=== PATIENT | male | born 1950 | race Caucasian/White ===

== ENCOUNTER 2019-06-26 06:53 | Outpatient (CLI) | payer OTHER, SELFPAY ==
[2019-06-26 07:21] LABS: Alanine Aminotransferase 46 U/L (4-50); Albumin Level 4.7 g/dL (3.5-5.1); Alkaline Phosphatase 86 U/L (38-126); Aspartate Amino Transferase 49 U/L (17-59); Bilirubin,Total 0.7 mg/dL (0.2-1.3); Blood Urea Nitrogen 16 mg/dL (9-20); Calcium 10.7 mg/dL (8.4-10.2); Carbon Dioxide 29 mmol/L (22-30); Chloride 104 mmol/L (98-107); Cholesterol 143 mg/dL (0-200); Estimated Glomerular Filt Rate > 60; Glucose 155 mg/dL (75-110); HDL Direct 33 mg/dL; Potassium 3.5 mmol/L (3.4-5.0); Sodium 140 mmol/L (137-145); Triglycerides 99 mg/dL (<150)
[2019-06-26 07:33] LABS: LDL Cholesterol Direct 84 mg/dL
[2019-06-26 08:12] LABS: Hemoglobin A1C 6.6 % (<5.7)
== END 2019-06-26 06:54 | disposition home or self-care (01) ==
PROVIDERS: PCP Emergency Medicine; Visit Provider Emergency Medicine
DX: E78.5 Hyperlipidemia, unspecified (principal); E11.9 Type 2 diabetes mellitus without complications
CPT/HCPCS: 36415; 80053; 80061; 83036

== ENCOUNTER 2019-07-25 11:40 | Observation (INO) | payer OTHER, SELFPAY ==
[2019-07-25] VITALS (13 sets, daily range): BP systolic 108–149; BP diastolic 70–85; PULSE 66–81; RESP 14–20; TEMP 36–37.1; O2SAT 95–100; BMI 30.2
--- NOTE | ~2019-07-25 | XR_ITS ---
EXAMINATION: XR chest 2V DATE: 07/25/2019 12:17 INDICATION: Chest pain TECHNIQUE: PA and lateral views of the chest are obtained. COMPARISON: 08/13/2007 FINDINGS: The lungs are free of acute opacities. There is no pleural effusion or pneumothorax. The ca rdiomediastinal silhouette is normal. There is moderate thoracic spondylosis. IMPRESSION: 1. No acute cardiopulmonary abnormality. Reviewed, dictated and finalized at location A.
--- NOTE | 2019-07-25 11:43 | ED.CHESTPAIN ---
HPI - Chest Pain General Chief Complaint: Chest Pain Stated Complaint: CP, Dizziness Time Seen by Provider: 07/25/19 11:43 Source: patient Mode of arrival: wheelchair Limitations: no limitations History of Present Illness HPI narrative: Patient is a 68-year-old male with a history of hypertension, hyperlipidemia, type 2 diabetes who presents for evaluation of chest pain and dizziness. Patient reports intermittent chest pain over the past 4 days that has mostly been in the center of his chest. Described as a sharp pain with radiation into the neck. Pt with left sided jaw pain, but denies shoulder pain. Patient has had associated dizziness that does not necessarily occur when he has a chest pain, but he notices the dizziness is worse when he goes from a sitting down to standing position, associated with lightheadedness. No syncope. No weakness. No palpitations. No fever, cough. Patient does notice some shortness of breath with exertion. No lower leg swelling or pain. No history of DVT or coagulopathy. No recent car or air travel, no recent immobility. Patient had a stress test many years ago which was normal. Patient does not smoke. Related Data Home Medications Medication Instructions Recorded Confirmed aspirin 81 mg tablet 81 mg PO DAILY 02/26/19 glipizide 5 mg tablet, extended 5 mg PO DAILY 02/26/19 release 24 hr lancets #50 each 02/26/19 omeprazole 20 mg tablet,delayed 20 mg PO DAILY 02/26/19 release fenofibrate nanocrystallized 48 mg PO DAILY 07/25/19 07/25/19 [Tricor] Allergies Allergy/AdvReac Type Severity Reaction Status Date / Time No Known Allergies Allergy Verified 07/25/19 11:49 Review of Systems Review of Systems: Narrative: CONSTITUTIONAL: Denies fever, chills, or sweats. EYES: Denies visual changes, redness, or discharge. ENT: Denies rhinorrhea, congestion, sore throat, or otalgia. CARDIOVASCULAR: Reports chest pain, denies palpitations or edema RESPIRATORY: Denies cough reports dyspnea with exertion GASTROINTESTINAL: Denies abdominal pain, nausea, vomiting, or diarrhea. GENITOURINARY: Denies dysuria or hematuria. SKIN: Denies rash or itching. MUSCULOSKELETAL: Denies back pain, joint pain, or myalgia. NEUROLOGIC: Denies headache, numbness, or weakness. [facility], [facility] Past Medical History Medical History (Updated 07/25/19 @ 12:57 by Idalmis Xavier MD) BPH (benign prostatic hyperplasia) Diabetes mellitus Hyperlipidemia Hypertension Screening PSA (prostate specific antigen) Social History Social History Smoking status: Never smoker Alcohol intake: current Exam Narrative: Exam Narrative: GENERAL: Awake, alert, conversant HEAD: Normocephalic, atraumatic. EYES: PERRLA and EOMI. ENT: Nares clear, no rhinorrhea or epistaxis. Mucous membranes moist. NECK: Supple. CHEST: No respiratory distress, breathing even and non labored, no reproducible chest wall pain HEART: Regular rate, sinus rhythm ABDOMEN:Non distended, non tender EXTREMITIES: Normal range of motion. No edema. SKIN: Warm, dry, no rash. NEURO:No focal deficits. Alert and oriented x3 Course Vital Signs Vital signs: Vital Signs Temperature 37.1 C 07/25/19 11:45 Pulse Rate 81 07/25/19 11:45 Respiratory Rate 14 07/25/19 11:45 Blood Pressure 149/85 H 07/25/19 11:45 Pulse Oximetry 99 07/25/19 11:45 Temperature 37.1 C 07/25/19 11:45 Pulse Rate 68 07/25/19 12:26 Respiratory Rate 20 07/25/19 12:26 Blood Pressure 123/74 07/25/19 12:26 Pulse Oximetry 98 07/25/19 12:26 MDM - Chest Pain MDM Narrative Medical decision making narrative: Patient presented for evaluation of chest pain as well as dizziness. At the time of assessment, ABCs are intact and vital signs are stable. Physical exam unremarkable. I feel that based on patient's history, symptoms, heart score of 6, there is concern for may be an anginal equivalent here especiall
--- NOTE | 2019-07-25 11:48 | ECG_ITS ---
Measurements Intervals [place] Rate: 79 P: 26 WV: 212 QRS: -25 QRSD: 110 T: 8 QT: 367 QTc: 421 Interpretive Statements SINUS RHYTHM WITH FIRST DEGREE AV BLOCK DELAYED PRECORDIAL R/S TRANSITION INFERIOR INFARCT, AGE INDETERMINATE ABNORMAL ECG Electronically Signed On 07-25-2019 13:17:52 CDT by Chandrakant Martinez D.O.
[2019-07-25] MEDS: ASPIRIN 81 MG CHEWABLE TABLET 324 MG PO (11:51)
[2019-07-25 12:08] LABS: Basophils Absolute Auto 0.1 K/mm3 (0.0-0.1); Basophils Percent Auto 0.9 % (0.2-1.2); Eosinophils Absolute Auto 0.2 K/mm3 (0-0.3); Eosinophils Percent Auto 2.4 % (0-4.4); Hematocrit 38.4 % (42.0-52.0); Hemoglobin 13.3 g/dL (14.0-18.0); Immature Granulocyte Absolute 0.03 K/mm3 (0.00-0.031); Immature Granulocyte Percent A 0.3 % (0-0.5); Lymphocytes Absolute Auto 1.64 K/mm3 (0.9-3.2); Lymphocytes Percent Auto 17.2 % (18.3-44.2); Mean Corpuscular HGB Conc 34.6 g/dl (32-36); Mean Corpuscular Hemoglobin 30.6 pg (26-34); Mean Corpuscular Volume 88.5 fl (80-100); Mean Platelet Volume 10.9 fl (7.4-10.4); Monocytes Percent Auto 10.7 % (2.6-8.5); Neutrophils Absolute Auto 6.5 K/mm3 (1.3-6.7); Neutrophils Percent Auto 68.5 % (45.5-73.1); Platelet Count Result 390 k/mm3 (150-375); Red Blood Count 4.34 M/mm3 (4.6-6.20); Red Cell Distribution Width 12.6 % (11.5-14.5); White Blood Count 9.5 K/mm3 (4.5-10.0)
[2019-07-25 12:17] LABS: Prothrombin Time 13.1 Seconds (11.1-14.7)
[2019-07-25 12:19] LABS: Blood Urea Nitrogen 18 mg/dL (9-20); Calcium 10.9 mg/dL (8.4-10.2); Carbon Dioxide 26 mmol/L (22-30); Chloride 102 mmol/L (98-107); Estimated CRCL calculation 71 ml/min; Estimated Glomerular Filt Rate > 60; Glucose 112 mg/dL (75-110); Potassium 3.6 mmol/L (3.4-5.0); Sodium 139 mmol/L (137-145)
[2019-07-25] MEDS: MORPHINE SULFATE 4 MG/ML INJ IV PUSH (12:25)
[2019-07-25 12:31] LABS: Troponin I < 0.012 ng/mL (0.000-0.034)
--- NOTE | 2019-07-25 14:47 | PC.NURSE ---
This patient, Ruslan King, was admitted to IMU Room 200-01. Patient/family oriented to hospital policies and general routines including ID bracelet, bed and alarms, visiting hours, pain management, procedures, bathroom and other care routines, personal items, smoking policy, room service/diet, and visiting hours. Valuables list has been completed. Information on how to activate the Rapid Response Team has been discussed. Patient/Family are encouraged to report perceived risks to care and to ask questions if they do not understand what they are told or what they should do.
[2019-07-25 15:50] LABS: Troponin I < 0.012 ng/mL (0.000-0.034)
--- NOTE | 2019-07-25 17:55 | PM.IMHP ---
H&P: HPI History of Present Illness Chief complaint: Dizziness, chest pain. Narrative: Ruslan King is a pleasant 68-year-old male with hypertension, dyslipidemia, type 2 diabetes mellitus, GERD, and benign prostatic hyperplasia who presented to the emergency department earlier today from home for evaluation of dizziness and chest pain. For the past week or so, he notes intermittent dizziness that he further qualifies as more vertiginous in nature. Typically he will have vertigo when waking up in the morning, bending over, and with certain position changes. Symptoms typically pass within approximately 10 to 15 minutes. If he is ambulating during that time, he tells me it feels as though he is ambulating while intoxicated. In the past 4 days, he also notes intermittent midsternal chest discomfort that he has a difficult time describing, but stays on occasion it is perhaps a bit tight. Initially, he thought his symptoms were related to GERD but he goes on to say that the symptoms are not really that similar. He has not noticed a pattern as to when this chest discomfort occurs, and specifically denies seeing a correlation between the discomfort and eating or with exercise. The discomfort seems to pass within minutes, without intervention. He does not necessarily have vertigo at the same time. No otalgia or aural fullness. He also denies sweats, nausea, vomiting, and shortness of breath. No lower extremity edema, calf pain, recent travel, or history of venous thromboembolism. As an aside, the patient wonders if some of his symptoms are due to anxiety as his 94-year-old mother, who is residing in a retirement in [place], has recently been diagnosed with pneumonia secondary to COVID. Review of Systems Review of Systems: Narrative: Twelve systems were reviewed with pertinent positives and negatives as per HPI. He typically wears contacts however his vision seems to be a bit more blurry while wearing the contacts, so now he is mainly wearing his glasses. He has an upcoming appoint with his eye doctor in the next couple of months. He denies that these visual changes were acute. Occasional night sweats, but nothing significant. He has lost about 5 pounds, but he has been trying to eat better. No focal weakness or paresthesias. He denies racing heart, fluttering, and palpitations. No cough or shortness of breath. He denies orthopnea, PND, and lower extremity edema. He has concerns for possible sleep apnea as he reportedly snores and does not always feel well rested. No nausea or vomiting. He denies diarrhea and constipation. He has not noticed any blood in his stools. He believes his diabetes is well controlled. Except as documented, all other systems were reviewed and are negative. [facility] Past Medical History Medical History (Updated 07/25/19 @ 21:18 by Zeina Miranda PA-C) Abnormal colonoscopy (~03/2017) History of benign colon and rectal polyps as well as uncomplicated internal hemorrhoids and diverticulosis on colonoscopy per Dr. Singh. Benign prostatic hyperplasia Essential hypertension Gastroesophageal reflux disease Hyperlipidemia Normal stress echocardiogram (~07/2007) Type 2 diabetes mellitus Hemoglobin A1c was 6.6% in May 2019. Surgical History Surgical History (Updated 07/25/19 @ 14:59 by Zeina Miranda PA-C) History of hydrocelectomy (~09/2011) Right hydrocelectomy per Dr. Bender. Family History Family History Sibling Diabetes mellitus Other Hypertension Social History Social History (Updated 07/25/19 @ 21:10 by Zeina Miranda PA-C) Social History: The patient lives in his own home in [place]. 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 He has no children. He is a lifelong nonsmoker and denies alcohol and drug abuse. His sibling, Romeo Gonsalez
[2019-07-25 18:29] LABS: Glucose Point of Care 112 (65-105)
[2019-07-25 19:11] LABS: Troponin I < 0.012 ng/mL (0.000-0.034)
[2019-07-25] MEDS: CLONIDINE HCL 0.2 MG TABLET BY MOUTH (23:23)
[2019-07-26] VITALS (10 sets, daily range): BP systolic 119–148; BP diastolic 67–90; PULSE 68–104; RESP 16–20; TEMP 36.2–36.7; O2SAT 98–100
--- NOTE | 2019-07-26 | EST_ITS ---
Patient Info Name: Ruslan King Age: 68 years : 1950 Gender: Male Ht: 67 in Wt: 194 lbs BSA: 2.07 m2 Exam Date: 07/26/2019 9:42 AM Exam Location: [facility] Stress Patient Status: Outpatient Admit Date: 07/25/2019 Staff Ordering Physician: Zeina Miranda PA-C Attending Provider: Juliann Kendall PA-C Exercise Technologist: Earl Meadows RDCS, RT Exercise Physician: Chandrakant Martinez DO Exam Type: CA stress test treadmill Study Info A regadenoson stress test was performed. Summary 1. 1. Negative Sage exercise stress test for ischemic ST changes by ECG criteria. 2. 2. Poor functional capacity, achieving 4 METs of workload. 3. 3. Baseline hypertension. 4. 4. Appropriate HR response to exercise. 5. 5. Appropriate HR recovery at 1 minute post exercise. 6. 6. No imaging with stress testing. 7. 7. Patient informed of the above results. Protocol: Sage Stress ECG Details Stage: REST Duration (min): 1 min : 17 sec Speed (mph): 0.0 Grade (%): 0 HR (bpm): 93 SBP (mmHg): 148 DBP (mmHg): 86 METS: --- Stage: REST Duration (min): 13 min : 13 sec Speed (mph): 0.0 Grade (%): 0 HR (bpm): 98 SBP (mmHg): 148 DBP (mmHg): 86 METS: --- Stage: STAGE 1 Duration (min): 1 min : 0 sec Speed (mph): 1.7 Grade (%): 10 HR (bpm): 125 SBP (mmHg): 148 DBP (mmHg): 86 METS: --- Stage: STAGE 1 Duration (min): 2 min : 0 sec Speed (mph): 1.7 Grade (%): 10 HR (bpm): 132 SBP (mmHg): 148 DBP (mmHg): 86 METS: --- Stage: STAGE 1 Duration (min): 2 min : 59 sec Speed (mph): 1.7 Grade (%): 10 HR (bpm): 136 SBP (mmHg): 174 DBP (mmHg): 100 METS: --- Stage: RECOVERY Duration (min): 1 min : 0 sec Speed (mph): 0.0 Grade (%): 0 HR (bpm): 128 SBP (mmHg): 174 DBP (mmHg): 100 METS: --- Stage: RECOVERY Duration (min): 2 min : 0 sec Speed (mph): 0.0 Grade (%): 0 HR (bpm): 111 SBP (mmHg): 174 DBP (mmHg): 100 METS: --- Stage: RECOVERY Duration (min): 2 min : 21 sec Speed (mph): 0.0 Grade (%): 0 HR (bpm): 108 SBP (mmHg): 174 DBP (mmHg): 100 METS: --- Rest HR: 98 bpm Peak HR: 140 bpm Rest Sys BP: 148 mmHg Peak Sys BP: 174 mmHg Max Pred HR: 150 bpm % Max Pred HR: 93 % Target HR: 128 bpm Max RPP: 24,360 bpm*mmHg Carl Score: -3 Termination Reason: Reached target heart rate or workload Cardiac Symptoms: Shortness of breath Max ST Seg Deviation: 1.20 mm Total Time: 2 min : 59 sec Rest Gregory BP: 86 mmHg Peak Gregory BP: 100 mmHg Angina Score: None Total METS: 4.7 Resting ECG Sinus rhythm. Stress ECG No ST changes. Arrhythmias None. Report Signatures
[2019-07-26 06:15] LABS: Hematocrit 36.6 % (42.0-52.0); Hemoglobin 12.5 g/dL (14.0-18.0); Mean Corpuscular HGB Conc 34.2 g/dl (32-36); Mean Corpuscular Hemoglobin 30.6 pg (26-34); Mean Corpuscular Volume 89.5 fl (80-100); Mean Platelet Volume 10.2 fl (7.4-10.4); Platelet Count Result 360 k/mm3 (150-375); Red Blood Count 4.09 M/mm3 (4.6-6.20); Red Cell Distribution Width 12.6 % (11.5-14.5); White Blood Count 7.1 K/mm3 (4.5-10.0)
[2019-07-26 06:31] LABS: Alanine Aminotransferase 34 U/L (4-50); Albumin Level 4.5 g/dL (3.5-5.1); Alkaline Phosphatase 77 U/L (38-126); Aspartate Amino Transferase 51 U/L (17-59); Bilirubin,Total 0.8 mg/dL (0.2-1.3); Blood Urea Nitrogen 14 mg/dL (9-20); Calcium 10.8 mg/dL (8.4-10.2); Carbon Dioxide 33 mmol/L (22-30); Chloride 102 mmol/L (98-107); Cholesterol 137 mg/dL (0-200); Estimated CRCL calculation 79 ml/min; Estimated Glomerular Filt Rate > 60; Glucose 136 mg/dL (75-110); HDL Direct 30 mg/dL; Potassium 3.2 mmol/L (3.4-5.0); Sodium 142 mmol/L (137-145); Triglycerides 65 mg/dL (<150)
[2019-07-26 06:41] LABS: LDL Cholesterol Direct 83 mg/dL
[2019-07-26] MEDS: CLONIDINE HCL 0.2 MG TABLET BY MOUTH (08:11)
[2019-07-26] MEDS: PANTOPRAZOLE SOD SESQUIHYDRATE 20 MG TAB PO (08:12)
[2019-07-26] MEDS: hydroCHLOROthiazide 25 MG TABLET PO (08:12)
[2019-07-26] MEDS: AMLODIPINE BESYLATE 5 MG TABLET 10 MG PO (08:12)
[2019-07-26] MEDS: METOPROLOL SUCCINATE EXT REL 50 MG TABCR PO (08:13)
[2019-07-26] MEDS: METOPROLOL SUCCINATE EXT REL 100 MG TABCR PO (08:13)
[2019-07-26] MEDS: LOSARTAN POTASSIUM 100 MG TABLET PO (08:13)
[2019-07-26] MEDS: ASPIRIN 81 MG ENTERIC TABLET PO (08:14)
[2019-07-26] MEDS: TAMSULOSIN HCL 0.4 MG CAPSULE PO (08:14)
[2019-07-26] MEDS: glipiZIDE XL 5 MG TABCR PO (08:14)
[2019-07-26] MEDS: FENOFIBRATE,MICRONIZED 48 MG TABLET PO (08:14)
[2019-07-26] MEDS: MECLIZINE HCL 12.5 MG TABLET PO (08:14)
[2019-07-26 09:25] LABS: Glucose Point of Care 133 (65-105)
[2019-07-26 12:32] LABS: Glucose Point of Care 138 (65-105)
[2019-07-26] MEDS: POTASSIUM CHLORIDE 20 MEQ TABLET 40 MEQ PO (14:55)
--- NOTE | 2019-07-26 15:42 | PM.DS ---
DS: Admitting Diagnosis Admitting Diagnosis Admitting Diagnosis: Chest pain, unspecified DS: Discharge Diagnosis Discharge Diagnosis (1) Chest pain: Code(s): R07.9 - Chest pain, unspecified Status: Acute Assessment and Plan: He reports his chest discomfort is mostly to his epigastric/substernal chest area without any radiation. Seems a bit atypical for cardiac pain, although he does have risk factors. He states this morning he got some of the discomfort but it was prior to him taking his PPI from the nurse. After that he did not seem to have any other symptoms. He is wondering if this is related to GERD. He has ruled out for acute coronary syndrome by serial troponins. Treadmill stress test was completed and showed negative Sage exercise stress test for ischemic ST changes on EKG, baseline hypertension, appropriate heart rate response to exercise and appropriate heart rate recovery 1 minutes post exercise. No imaging was completed with the stress test. Echocardiogram was completed which showed left ventricular systolic function was normal at 60 to 65%, LV diastolic dysfunction grade 1, mild to moderate aortic valve regurgitation, otherwise no acute abnormality. Telemetry showed normal sinus rhythm with a heart rate of 97 bpm, with only a few alarm showing sinus tachycardia in the 120s which was most likely when he was up walking around. No acute abnormality noted on telemetry or arrhythmia. Fasting lipids this morning showed normal total cholesterol normal triglycerides, slightly elevated LDL at 83 which should be less than 70 since he has a history of diabetes, and low HDL showing he may need to exercise some more his free time. I feel at this time he is stable to be discharged home after the extensive cardiac workup we have completed on him at this time. Patient understands and agrees with the plan all questions answered. (2) Suspected sleep apnea: Code(s): R29.818 - Other symptoms and signs involving the nervous system Status: Acute Assessment and Plan: Apnea link was completed last night which does show some suspicion for underlying GETACHEW. Apnea link showed AHI was 13.5, RI was 15.3, MARIA ELENA 9.4. He states his primary care provider was trying to get him set up with an outpatient sleep study, which I feel this is but needs to be done next. (3) Essential hypertension: Code(s): I10 - Essential (primary) hypertension Status: Acute Assessment and Plan: Blood pressures were reviewed and they are reasonably well controlled. Continue antihypertensives and monitor daily. (4) Type 2 diabetes mellitus: Code(s): E11.9 - Type 2 diabetes mellitus without complications Status: Acute Assessment and Plan: Recent hemoglobin A1c was 6.6%. Will continue metformin upon discharge. (5) Hyperlipidemia: Code(s): E78.5 - Hyperlipidemia, unspecified Status: Acute Assessment and Plan: Continue fenofibrate. I feel he may need a statin medication to reduce his LDL cholesterol less than 70. (6) Benign prostatic hyperplasia: Code(s): N40.0 - Benign prostatic hyperplasia without lower urinary tract symptoms Status: Acute Assessment and Plan: No acute issues. Continue tamsulosin. (7) Gastroesophageal reflux disease: Code(s): K21.9 - Gastro-esophageal reflux disease without esophagitis Status: Acute Assessment and Plan: Continue omeprazole. (8) Vertigo: Code(s): R42 - Dizziness and giddiness Status: Acute Assessment and Plan:
--- NOTE | 2019-07-26 21:15 | ECHO_ITS ---
Patient Info Name: Ruslan King Age: 68 years : 1950 Gender: Male Ht: 69 in Wt: 193 lbs BSA: 2.08 m2 HR: 78 bpm BP: 137 / 90 mmHg Heart Rhythm: Sinus Rhythm Technical Quality: Good Exam Date: 07/26/2019 11:52 AM Exam Location: [facility] Patient Status: Inpatient Admit Date: 07/25/2019 Staff Ordering Physician: Zeina Miranda PA-C Associate Professor Of Chemistry: Jerardo Frias RDCS Attending Provider: Juliann Kendall PA-C Referring Physician: Ruth LANG; Exam Type: CA echo doppler color flow Study Info Indications R07.9 - Chest pain, unspecified Complete two-dimensional, color flow and Doppler transthoracic echocardiogram is performed. Strain analysis performed. History/Risk Factors Chest pain; HTN, DM2. Summary 1. Left ventricular chamber dimension is normal. 2. Ventricular septum is sigmoid shaped. 3. Left ventricular systolic function is normal, estimated at 60-65%. 4. The left ventricular diastolic function is grade I diastolic dysfunction. 5. E/e' 8 is minimally elevated. 6. Global longitudinal strain is abnormal at -14.8%. 7. Left atrial chamber dimension is mildly enlarged. 8. Right atrial chamber dimension is mildly enlarged. 9. There is mild aortic valve sclerosis. 10. There is mild to moderate aortic valve regurgitation. 11. No pulmonary hypertension, estimated pulmonary arterial systolic pressure is 27 mmHg. Left Ventricle E/e' 8 is minimally elevated. Global longitudinal strain is abnormal at -14.8%. Ventricular septum is sigmoid shaped. Left ventricular chamber dimension is normal. Left ventricular systolic function is normal, estimated at 60-65%. The left ventricular diastolic function is grade I diastolic dysfunction. Right Ventricle Right ventricular chamber dimension is normal. Right ventricular systolic function is normal. Left Atria Left atrial chamber dimension is mildly enlarged. Right Atria Right atrial chamber dimension is mildly enlarged. Aortic Valve The aortic valve is trileaflet. There is mild aortic valve sclerosis. There is no aortic valve stenosis. There is mild to moderate aortic valve regurgitation. Pulmonic Valve There is no pulmonic regurgitation. Mitral Valve There is no mitral valve stenosis. There is no mitral valve regurgitation. Tricuspid Valve There is no tricuspid valve regurgitation. No pulmonary hypertension, estimated pulmonary arterial systolic pressure is 27 mmHg. Pericardium/Pleural There is no pericardial effusion. Inferior Vena Cava Normal inferior vena cava with >50% collapse upon inspiration consistent with normal right atrial pressure, 5 mmHg. Aorta The aortic root size at the sinus of Valsalva is normal. Left Ventricular Outflow Tract Name Value Normal LVOT 2D LVOT Diameter 2.1 cm LVOT Doppler LVOT Peak Gradient 5 mmHg LVOT Mean Gradient 2 mmHg LVOT VTI 19 cm LVOT VTI/AV VTI Ratio 0.6 LVOT Stroke Volume 67 ml
== END 2019-07-26 17:33 | disposition home or self-care (01) ==
LOC: ANHED 13:11 → ANHIMU 13:28
PROVIDERS: Physician Assistant; Admitting Provider Family Medicine; Emergency Provider Emergency Medicine; PCP Emergency Medicine; Visit Provider Physician Assistant
DX: R07.89 Other chest pain (principal); R29.818 Other symptoms and signs involving the nervous system; I10 Essential (primary) hypertension; E78.5 Hyperlipidemia, unspecified; E11.9 Type 2 diabetes mellitus without complications; K21.9 Gastro-esophageal reflux disease without esophagitis; N40.0 Benign prostatic hyperplasia without lower urinary tract symptoms; R42 Dizziness and giddiness; Z79.82 Long term (current) use of aspirin; Z79.899 Other long term (current) drug therapy
CPT/HCPCS: 36415; 71046; 80048; 80053; 80061; 84484; 85025; 85027; 85610; 85730; 93005; 93017; 93306; 94762; 96374; 97161; 99285; A9270; G0378; J2270

== ENCOUNTER 2019-10-22 07:16 | Outpatient (CLI) | payer OTHER, SELFPAY ==
[2019-10-22 07:43] LABS: Hemoglobin A1C 6.5 % (<5.7)
[2019-10-22 07:45] LABS: Alanine Aminotransferase 28 U/L (4-50); Albumin Level 4.5 g/dL (3.5-5.1); Alkaline Phosphatase 82 U/L (38-126); Anion Gap 8 mmol/L (8-16); Aspartate Amino Transferase 42 U/L (17-59); Bilirubin,Total 0.4 mg/dL (0.2-1.3); Blood Urea Nitrogen 21 mg/dL (9-20); Calcium 10.4 mg/dL (8.4-10.2); Carbon Dioxide 29 mmol/L (22-30); Chloride 103 mmol/L (98-107); Cholesterol 136 mg/dL (0-200); Estimated Glomerular Filt Rate > 60; Glucose 162 mg/dL (75-110); HDL Direct 33 mg/dL; Potassium 3.6 mmol/L (3.4-5.0); Sodium 140 mmol/L (137-145); Triglycerides 80 mg/dL (<150)
[2019-10-22 07:56] LABS: LDL Cholesterol Direct 77 mg/dL
== END 2019-10-22 07:17 | disposition home or self-care (01) ==
PROVIDERS: PCP Emergency Medicine; Visit Provider Emergency Medicine
DX: E78.5 Hyperlipidemia, unspecified (principal); E11.9 Type 2 diabetes mellitus without complications
CPT/HCPCS: 36415; 80053; 80061; 83036

== ENCOUNTER 2020-02-25 07:01 | Outpatient (CLI) | payer OTHER, SELFPAY ==
[2020-02-25 07:52] LABS: Alanine Aminotransferase 56 U/L (4-50); Albumin Level 4.4 g/dL (3.5-5.1); Alkaline Phosphatase 104 U/L (38-126); Anion Gap 8 mmol/L (8-16); Aspartate Amino Transferase 53 U/L (17-59); Bilirubin,Total 0.4 mg/dL (0.2-1.3); Blood Urea Nitrogen 18 mg/dL (9-20); Carbon Dioxide 30 mmol/L (22-30); Chloride 101 mmol/L (98-107); Cholesterol 130 mg/dL (0-200); Estimated Glomerular Filt Rate > 60; Glucose 179 mg/dL (75-110); HDL Direct 33 mg/dL; Potassium 3.8 mmol/L (3.4-5.0); Sodium 139 mmol/L (137-145); Triglycerides 87 mg/dL (<150)
[2020-02-25 08:03] LABS: LDL Cholesterol Direct 81 mg/dL
[2020-02-25 08:07] LABS: Hemoglobin A1C 6.7 % (<5.7)
[2020-02-25 08:21] LABS: Prostate Specific Antigen 0.4 ng/mL (< OR = 4.0)
[2020-02-25 08:25] LABS: Creatinine Urine 74.7 mg/dL
[2020-02-25 08:29] LABS: MALB Creatinine Ratio 190.8 mg/g (0-30); Microalbumin Urine Random 142.5 mg/L (0-16.7)
== END 2020-02-25 07:02 | disposition home or self-care (01) ==
PROVIDERS: PCP Emergency Medicine; Visit Provider Emergency Medicine
DX: E78.5 Hyperlipidemia, unspecified (principal); E11.9 Type 2 diabetes mellitus without complications; Z12.5 Encounter for screening for malignant neoplasm of prostate
CPT/HCPCS: 36415; 80053; 80061; 82043; 83036; 84153; G0103

== ENCOUNTER 2020-05-26 07:17 | Outpatient (CLI) | payer OTHER, SELFPAY ==
[2020-05-26 07:50] LABS: Hemoglobin A1C 6.7 % (<5.7)
[2020-05-26 07:52] LABS: Alanine Aminotransferase 27 U/L (4-50); Albumin Level 4.5 g/dL (3.5-5.1); Alkaline Phosphatase 91 U/L (38-126); Anion Gap 6 mmol/L (8-16); Aspartate Amino Transferase 42 U/L (17-59); Bilirubin,Total 0.5 mg/dL (0.2-1.3); Blood Urea Nitrogen 20 mg/dL (9-20); Calcium 11.3 mg/dL (8.4-10.2); Carbon Dioxide 32 mmol/L (22-30); Chloride 102 mmol/L (98-107); Cholesterol 121 mg/dL (0-200); Estimated Glomerular Filt Rate > 60; Glucose 164 mg/dL (75-110); HDL Direct 33 mg/dL; Sodium 140 mmol/L (137-145); Triglycerides 87 mg/dL (<150)
[2020-05-26 08:03] LABS: LDL Cholesterol Direct 63 mg/dL
[2020-05-26 08:17] LABS: Creatinine Urine 55.8 mg/dL
[2020-05-26 08:22] LABS: MALB Creatinine Ratio 153.4 mg/g (0-30); Microalbumin Urine Random 85.6 mg/L (0-16.7)
== END 2020-05-26 07:18 | disposition home or self-care (01) ==
PROVIDERS: PCP Emergency Medicine; Visit Provider Emergency Medicine
DX: E78.5 Hyperlipidemia, unspecified (principal); E11.9 Type 2 diabetes mellitus without complications
CPT/HCPCS: 36415; 80053; 80061; 82043; 83036

== ENCOUNTER 2020-06-12 13:33 | Outpatient (CLI) | payer OTHER, SELFPAY | END 2020-06-12 13:34 | disposition home or self-care (01) | LOC: ANHCOVIDVC 13:33 | PROVIDERS: PCP Emergency Medicine | DX: Z23 Encounter for immunization (principal) | CPT/HCPCS: 0001A; 91300 ==

== ENCOUNTER 2020-07-03 13:29 | Outpatient (CLI) | payer OTHER, SELFPAY | END 2020-07-03 13:30 | disposition home or self-care (01) | LOC: ANHCOVIDVC 13:29 | PROVIDERS: PCP Emergency Medicine | DX: Z23 Encounter for immunization (principal) | CPT/HCPCS: 0002A; 91300 ==

== ENCOUNTER 2020-10-13 06:51 | Outpatient (CLI) | payer OTHER, SELFPAY ==
[2020-10-13 07:49] LABS: Alanine Aminotransferase 26 U/L (4-50); Albumin Level 4.5 g/dL (3.5-5.1); Alkaline Phosphatase 97 U/L (38-126); Anion Gap 6 mmol/L (8-16); Aspartate Amino Transferase 41 U/L (17-59); Bilirubin,Total 0.4 mg/dL (0.2-1.3); Blood Urea Nitrogen 16 mg/dL (9-20); Calcium 10.9 mg/dL (8.4-10.2); Carbon Dioxide 29 mmol/L (22-30); Chloride 99 mmol/L (98-107); Cholesterol 121 mg/dL (0-200); Estimated Glomerular Filt Rate > 60; Glucose 186 mg/dL (65-110); HDL Direct 30 mg/dL; Potassium 3.8 mmol/L (3.4-5.0); Sodium 134 mmol/L (137-145); Triglycerides 90 mg/dL (<150)
[2020-10-13 08:00] LABS: LDL Cholesterol Direct 67 mg/dL
[2020-10-13 08:23] LABS: Creatinine Urine 47.2 mg/dL
[2020-10-13 08:28] LABS: MALB Creatinine Ratio 195.3 mg/g (0-30); Microalbumin Urine Random 92.2 mg/L (0-16.7)
[2020-10-13 17:20] LABS: Hemoglobin A1C 6.8 % (<5.7)
== END 2020-10-13 06:52 | disposition home or self-care (01) ==
PROVIDERS: PCP Emergency Medicine; Visit Provider Emergency Medicine
DX: E11.9 Type 2 diabetes mellitus without complications (principal); I10 Essential (primary) hypertension; E78.5 Hyperlipidemia, unspecified
CPT/HCPCS: 36415; 80053; 80061; 82043; 83036

== ENCOUNTER 2021-01-19 06:58 | Outpatient (CLI) | payer OTHER, SELFPAY ==
[2021-01-19 09:01] LABS: Alanine Aminotransferase 23 U/L (4-50); Albumin Level 4.5 g/dL (3.5-5.1); Alkaline Phosphatase 91 U/L (38-126); Anion Gap 9 mmol/L (8-16); Aspartate Amino Transferase 36 U/L (17-59); Bilirubin,Total 0.5 mg/dL (0.2-1.3); Blood Urea Nitrogen 17 mg/dL (9-20); Calcium 11.9 mg/dL (8.4-10.2); Carbon Dioxide 29 mmol/L (22-30); Chloride 100 mmol/L (98-107); Cholesterol 121 mg/dL (0-200); Estimated Glomerular Filt Rate 60; Glucose 178 mg/dL (65-110); HDL Direct 31 mg/dL; Potassium 3.6 mmol/L (3.4-5.0); Sodium 138 mmol/L (137-145); Triglycerides 90 mg/dL (<150)
[2021-01-19 09:11] LABS: Hemoglobin A1C 6.5 % (<5.7)
[2021-01-19 09:12] LABS: LDL Cholesterol Direct 69 mg/dL
[2021-01-19 13:12] LABS: Creatinine Urine 77.5 mg/dL
[2021-01-19 13:16] LABS: Microalbumin Urine Random 120.1 mg/L (0-16.7)
== END 2021-01-19 06:59 | disposition home or self-care (01) ==
LOC: ANHLAB 07:02
PROVIDERS: PCP Emergency Medicine; Visit Provider Emergency Medicine
DX: E11.9 Type 2 diabetes mellitus without complications (principal); E78.5 Hyperlipidemia, unspecified; I10 Essential (primary) hypertension
CPT/HCPCS: 36415; 80053; 80061; 82043; 83036

== ENCOUNTER 2021-04-20 06:54 | Outpatient (CLI) | payer OTHER, SELFPAY ==
[2021-04-20 07:58] LABS: Hemoglobin A1C 6.9 % (<5.7)
[2021-04-20 08:04] LABS: Alanine Aminotransferase 22 U/L (4-50); Albumin Level 4.4 g/dL (3.5-5.1); Alkaline Phosphatase 102 U/L (38-126); Anion Gap 6 mmol/L (8-16); Aspartate Amino Transferase 42 U/L (17-59); Bilirubin,Total 0.5 mg/dL (0.2-1.3); Blood Urea Nitrogen 16 mg/dL (9-20); Calcium 11.9 mg/dL (8.4-10.2); Carbon Dioxide 31 mmol/L (22-30); Chloride 100 mmol/L (98-107); Cholesterol 111 mg/dL (0-200); Estimated Glomerular Filt Rate 60; Glucose 209 mg/dL (65-110); HDL Direct 34 mg/dL; Potassium 3.3 mmol/L (3.4-5.0); Sodium 137 mmol/L (137-145); Triglycerides 87 mg/dL (<150)
[2021-04-20 08:11] LABS: LDL Cholesterol Direct 64 mg/dL
[2021-04-20 08:22] LABS: Creatinine Urine 62.6 mg/dL
[2021-04-20 08:37] LABS: MALB Creatinine Ratio 631.5 mg/g (0-30); Microalbumin Urine Random 395.3 mg/L (0-16.7)
== END 2021-04-20 06:55 | disposition home or self-care (01) ==
PROVIDERS: PCP Emergency Medicine; Visit Provider Emergency Medicine
DX: E78.5 Hyperlipidemia, unspecified (principal); E11.9 Type 2 diabetes mellitus without complications; I10 Essential (primary) hypertension
CPT/HCPCS: 36415; 80053; 80061; 82043; 83036

== ENCOUNTER 2021-04-23 08:53 | Outpatient (CLI) | payer OTHER, SELFPAY ==
[2021-04-26 15:34] LABS: Abnormal Protein Band 1 1.9 g/dL; Albumin 4.6 g/dL (3.8-4.8); Alpha 1 Globulin 0.4 g/dL (0.2-0.3); Alpha 2 Globulin 1.1 g/dL (0.5-0.9); Beta 1 Globulin 0.6 g/dL (0.4-0.6); Gamma Globulin 2.4 g/dL (0.8-1.7); Protein, Total 9.4 g/dL (6.1-8.1)
[2021-04-27 04:52] LABS: Creatinine, Random Urine 172 mg/dL (20-320); Total Protein/Creatinine Ratio 564 mg/g creat (22-128)
== END 2021-04-23 08:54 | disposition home or self-care (01) ==
LOC: ANHLAB 08:54
PROVIDERS: PCP Emergency Medicine; Visit Provider Emergency Medicine
DX: E83.52 Hypercalcemia (principal); E34.9 Endocrine disorder, unspecified
CPT/HCPCS: 36415; 82570; 84155; 84156; 84165; 84166

== ENCOUNTER 2021-04-28 10:23 | Outpatient (CLI) | payer OTHER, SELFPAY ==
[2021-04-28 11:13] LABS: Alanine Aminotransferase 25 U/L (4-50); Albumin Level 4.4 g/dL (3.5-5.1); Alkaline Phosphatase 105 U/L (38-126); Anion Gap 0 mmol/L (8-16); Aspartate Amino Transferase 54 U/L (17-59); Bilirubin,Total 0.5 mg/dL (0.2-1.3); Blood Urea Nitrogen 22 mg/dL (9-20); Calcium 11.6 mg/dL (8.4-10.2); Carbon Dioxide 28 mmol/L (22-30); Chloride 104 mmol/L (98-107); Estimated Glomerular Filt Rate 54; Glucose 158 mg/dL (65-110); Potassium 3.6 mmol/L (3.4-5.0); Sodium 132 mmol/L (137-145)
== END 2021-04-28 10:24 | disposition home or self-care (01) ==
PROVIDERS: PCP Emergency Medicine; Visit Provider Emergency Medicine
DX: E78.5 Hyperlipidemia, unspecified (principal); E83.52 Hypercalcemia; R77.1 Abnormality of globulin
CPT/HCPCS: 36415; 80053; 86334

== ENCOUNTER 2021-06-07 13:24 | Outpatient (CLI) | payer OTHER, SELFPAY ==
--- NOTE | ~2021-06-07 | XR_ITS ---
EXAMINATION: XR bone survey comp/metastic DATE: 06/07/2021 14:16 INDICATION: Plasma cell disorder. TECHNIQUE: 29 views of a skeletal survey were obtained. COMPARISON: CT abdomen 04/25/2011 FINDINGS: There is anterior and posterior fusion at C3-C4. There is moderate cervical spondylosis. Th ere are approximately 10 lytic lesions in the skull measuring up to 13 mm. There is mild thoracic and lumbar spondylosis. IMPRESSION: 1. Lytic lesions in the skull, which may be multiple myeloma or normal variants of vascularity. Reviewed, dictated and finalized at location A.
== END 2021-06-07 13:25 | disposition home or self-care (01) ==
LOC: ANHIMG 13:25
PROVIDERS: PCP Emergency Medicine; Visit Provider Internal Medicine Hematology & Oncology
DX: D72.9 Disorder of white blood cells, unspecified (principal); M47.813 Spondylosis without myelopathy or radiculopathy, cervicothoracic region; M47.815 Spondylosis without myelopathy or radiculopathy, thoracolumbar region; M89.9 Disorder of bone, unspecified
CPT/HCPCS: 77075

== ENCOUNTER 2021-06-08 10:03 | Outpatient (CLI) | payer OTHER, SELFPAY ==
[2021-06-08 10:53] LABS: Basophils Absolute Auto 0.1 K/mm3 (0.0-0.1); Basophils Percent Auto 1.1 % (0.2-1.2); Eosinophils Absolute Auto 0.2 K/mm3 (0-0.3); Eosinophils Percent Auto 3.2 % (0-4.4); Immature Granulocyte Absolute 0.03 K/mm3 (0.00-0.031); Immature Granulocyte Percent A 0.5 % (0-0.5); Lymphocytes Absolute Auto 1.59 K/mm3 (0.9-3.2); Mean Corpuscular HGB Conc 32.3 g/dl (32-36); Mean Corpuscular Hemoglobin 30.8 pg (26-34); Mean Corpuscular Volume 95.4 fl (80-100); Monocytes Percent Auto 14.8 % (2.6-8.5); Neutrophils Absolute Auto 3.8 K/mm3 (1.3-6.7); Neutrophils Percent Auto 56.4 % (45.5-73.1); Platelet Count Result 372 k/mm3 (150-375); Red Blood Count 3.25 M/mm3 (4.6-6.20); Red Cell Distribution Width 13.2 % (11.5-14.5); White Blood Count 6.6 K/mm3 (4.5-10.0)
[2021-06-08 11:26] LABS: Alanine Aminotransferase 17 U/L (4-50); Albumin Level 4.2 g/dL (3.5-5.1); Alkaline Phosphatase 94 U/L (38-126); Anion Gap 8 mmol/L (8-16); Aspartate Amino Transferase 36 U/L (17-59); Bilirubin,Total 0.6 mg/dL (0.2-1.3); Blood Urea Nitrogen 20 mg/dL (9-20); Calcium 11.9 mg/dL (8.4-10.2); Carbon Dioxide 30 mmol/L (22-30); Chloride 102 mmol/L (98-107); Estimated Glomerular Filt Rate 54; Glucose 145 mg/dL (65-110); Sodium 140 mmol/L (137-145)
[2021-06-08 13:38] LABS: Immunoglobulin G 330 mg/dL (700-1600)
[2021-06-08 14:57] LABS: Immunoglobulin A < 40 mg/dL (70-400); Immunoglobulin M > 4000 mg/dL (40-230)
[2021-06-11 04:05] LABS: Abnormal Protein Band 1 3.4 g/dL; Albumin 3.8 g/dL (3.8-4.8); Alpha 1 Globulin 0.3 g/dL (0.2-0.3); Alpha 2 Globulin 0.9 g/dL (0.5-0.9); Beta 1 Globulin 0.6 g/dL (0.4-0.6); Gamma Globulin 3.9 g/dL (0.8-1.7); Protein, Total 9.7 g/dL (6.1-8.1)
[2021-06-12 00:32] LABS: Kappa\\Lambda Light Chains 0.05 (0.26-1.65); Lambda Light Chain 209.8 mg/L (5.7-26.3)
== END 2021-06-08 10:04 | disposition home or self-care (01) ==
LOC: ANHLAB 10:05
PROVIDERS: PCP Emergency Medicine; Visit Provider Internal Medicine Hematology & Oncology
DX: D72.9 Disorder of white blood cells, unspecified (principal); E83.52 Hypercalcemia
CPT/HCPCS: 36415; 80053; 82784; 83883; 83970; 84155; 84165; 85025

== ENCOUNTER 2021-07-09 10:11 | Outpatient (CLI) | payer OTHER, SELFPAY ==
[2021-07-09 10:46] LABS: Hemoglobin A1C 6.7 % (<5.7)
== END 2021-07-09 10:12 | disposition home or self-care (01) ==
LOC: ANHLAB 10:12
PROVIDERS: PCP Emergency Medicine; Visit Provider Emergency Medicine
DX: E11.9 Type 2 diabetes mellitus without complications (principal)
CPT/HCPCS: 36415; 83036

== ENCOUNTER 2021-07-16 09:54 | Emergency (ER) | payer OTHER, SELFPAY ==
--- NOTE | ~2021-07-16 | XR_ITS ---
XR abdomen/kub 1V 07/16/2021 12:40 INDICATION: Constipation TECHNIQUE: KUB COMPARISON: None FINDINGS: Bowel gas pattern is normal. Moderate colonic fecal loading. There is no evidence of free a ir, mass, organomegaly, ascites or obstruction. No abnormal calculi are seen. The bones appear inta ct. IMPRESSION: 1: No acute abdominal abnormality identified. Reviewed, dictated and finalized at location B.
--- NOTE | ~2021-07-16 | XR_ITS ---
EXAMINATION: XR chest 2V 07/16/2021 12:40 INDICATION: Shortness of breath PROCEDURE: 2 view chest COMPARISON: 07/25/2019 FINDINGS: The lungs are clear. The cardiomediastinal silhouette is within normal limits. There are no pleural effusions. There is no pneumothorax suspected. IMPRESSION: 1: NO ACUTE CARDIOPULMONARY DISEASE. Reviewed, dictated and finalized at location B.
[2021-07-16 09:59] VITALS: BP 139/78; PULSE 83; RESP 18; TEMP 36.1; O2SAT 100
[2021-07-16 10:49] VITALS: BP 154/80; PULSE 79; RESP 18; TEMP 36.8; O2SAT 100
--- NOTE | 2021-07-16 12:27 | ECG_ITS ---
Measurements Intervals [place] Rate: 63 P: NM: 0 QRS: 6 QRSD: 113 T: -7 QT: 392 QTc: 402 Interpretive Statements SINUS RHYTHM WITH MARKED SINUS ARRHYTHMIA ATRIAL PREMATURE COMPLEX CONSIDER INFERIOR INFARCT, AGE INDETERMINATE ABNORMAL ECG Electronically Signed On 07-16-2021 14:29:30 CDT by Chandrakant Martinez D.O.
[2021-07-16 12:28] LABS: Add Urine Microscopic? NO; Appearance Urine Clear (Clear); Bilirubin Urine Negative (Negative); Blood Urine Negative (Negative); Color Urine Yellow (Yellow); Glucose Urine UA Negative (Negative); Ketones Urine Negative (Negative); Leukocyte Esterase Ur Negative LEU/UL (Negative); Nitrate Urine Negative (Negative); Protein Urine Negative (Negative); Urobilinogen Urine 0.2 mg/dL (<2.0)
[2021-07-16 12:39] LABS: Basophils Absolute Auto 0.1 K/mm3 (0.0-0.1); Basophils Percent Auto 0.7 % (0.2-1.2); Eosinophils Absolute Auto 0.1 K/mm3 (0-0.3); Eosinophils Percent Auto 0.9 % (0-4.4); Hematocrit 28.6 % (42.0-52.0); Hemoglobin 9.2 g/dL (14.0-18.0); Immature Granulocyte Absolute 0.02 K/mm3 (0.00-0.031); Immature Granulocyte Percent A 0.3 % (0-0.5); Lymphocytes Absolute Auto 1.04 K/mm3 (0.9-3.2); Lymphocytes Percent Auto 14.8 % (18.3-44.2); Mean Corpuscular HGB Conc 32.2 g/dl (32-36); Mean Corpuscular Hemoglobin 30.5 pg (26-34); Mean Corpuscular Volume 94.7 fl (80-100); Monocytes Absolute Auto 0.8 K/mm3 (0.1-0.6); Monocytes Percent Auto 11.8 % (2.6-8.5); Neutrophils Percent Auto 71.5 % (45.5-73.1); Platelet Count Result 313 k/mm3 (150-375); Red Blood Count 3.02 M/mm3 (4.6-6.20); Red Cell Distribution Width 13.3 % (11.5-14.5)
[2021-07-16 12:50] LABS: Alanine Aminotransferase 28 U/L (6-50); Albumin Level 4.3 g/dL (3.5-5.1); Alkaline Phosphatase 82 U/L (38-126); Anion Gap 8 mmol/L (8-16); Aspartate Amino Transferase 51 U/L (17-59); Bilirubin,Total 0.5 mg/dL (0.2-1.3); Blood Urea Nitrogen 18 mg/dL (9-20); Calcium 10.1 mg/dL (8.4-10.2); Carbon Dioxide 29 mmol/L (22-30); Chloride 101 mmol/L (98-107); Estimated CRCL calculation 40 ml/min; Estimated Glomerular Filt Rate 50; Glucose 111 mg/dL (65-110); Sodium 138 mmol/L (137-145)
--- NOTE | 2021-07-16 13:00 | ED.MALEGU ---
HPI - Male Genitourinary General Chief complaint: Urogenital-Male Stated complaint: problem urinating, constipation Time Seen by Provider: 07/16/21 11:59 Source: patient and RN notes reviewed Mode of arrival: ambulatory Limitations: no limitations History of Present Illness HPI Narrative: This is a 70 year old male with history of BPH who presents for evaluation of difficulty urinating and decreased bowel movement. Patient reports he developed diarrhea 2 weeks ago, but his stool has become formed. He states he is passing small amounts of stool this week but he has not had good bowel movement . He does not feel like he needs to have a bowel movement. He has decreased appetite and he has not eating as much. He is also reporting that his stream is slow when he urinates. He is only able to urinate small amount. He has intermittent groin pain, but he otherwise denies abdominal pain, back pain, nausea, vomiting or fever. He also states he is dealing with anxiety due to recent diagnosis of multiple myeloma. He is getting scheduled for stress test as well. Related Data Home Medications Medication Instructions Recorded Confirmed aspirin 81 mg tablet 81 mg PO DAILY 02/26/19 07/16/21 omeprazole 20 mg tablet,delayed 20 mg PO DAILY 02/26/19 07/16/21 release cholecalciferol (vitamin D3) 50 50 mcg PO DAILY 10/28/19 07/16/21 mcg (2,000 unit) tablet amlodipine 10 mg PO DAILY 07/16/21 07/16/21 clonidine HCl 0.2 mg PO BID 07/16/21 07/16/21 fenofibrate nanocrystallized 48 mg PO DAILY 07/16/21 07/16/21 glipizide 5 mg PO DAILY 07/16/21 07/16/21 losartan-hydrochlorothiazide 1 tablet PO DAILY 07/16/21 07/16/21 metformin 1,000 mg PO BID 07/16/21 07/16/21 metoprolol succinate 50 mg PO QAM 07/16/21 07/16/21 metoprolol succinate 100 mg PO QAM 07/16/21 07/16/21 polyethylene glycol 3350 [Miralax] 17 g PO DAILY PRN 07/16/21 07/16/21 tamsulosin 0.4 mg PO DAILY 07/16/21 07/16/21 Allergies Allergy/AdvReac Type Severity Reaction Status Date / Time No Known Allergies Allergy Verified 07/16/21 17:13 Review of Systems Review of Systems: All systems reviewed & are unremarkable except as noted in HPI and below Constitutional: Constitutional: Denies chills and Denies fever(s) Cardiovascular: Cardiovascular: Denies chest pain Respiratory: Respiratory: Denies cough and Reports dyspnea Gastrointestinal: Gastrointestinal: Denies abdominal pain, Reports constipation, Reports diarrhea, Denies nausea and Denies vomiting Genitourinary: Genitourinary: Denies hematuria, Reports oliguria, Denies dysuria, Denies penile discharge, Denies testicular pain and Denies urinary frequency Musculoskeletal: Musculoskeletal: Denies back pain [facility] Past Medical History Medical History Abnormal colonoscopy (~03/2017) History of benign colon and rectal polyps as well as uncomplicated internal hemorrhoids and diverticulosis on colonoscopy per Dr. Singh. Alcohol abuse, uncomplicated Apneic spell Benign prostatic hyperplasia Body mass index [BMI] 31.0-31.9, adult (08/25/16) Body mass index [BMI] 32.0-32.9, adult (02/10/15) Decreased hearing of both ears Enlarged prostate without lower urinary tract symptoms (luts) Essential hypertension Fatigue Gastroesophageal reflux disease Hx of colonic polyps Hyperlipidemia Normal stress echocardiogram (~07/2007) Snoring Type 2 diabetes mellitus Hemoglobin A1c was 6.6% in May 2019. Vitamin D deficiency Surgical History Surgical History History of hydrocelectomy (~09/2011) Right hydrocelectomy per Dr. Bender. Family History Family History Sibling Diabetes mellitus Other Hypertension Social History Social History Social History: The patient lives in his own home in [place]. He i
[2021-07-16] MEDS: POTASSIUM CHLORIDE 20 MEQ TABLET 40 MEQ PO (15:41)
== END 2021-07-16 15:46 | disposition home or self-care (01) ==
PROVIDERS: Emergency Provider General Practice; PCP Emergency Medicine
DX: K59.00 Constipation, unspecified (principal); E87.6 Hypokalemia; C90.00 Multiple myeloma not having achieved remission; I10 Essential (primary) hypertension; E11.9 Type 2 diabetes mellitus without complications; E78.5 Hyperlipidemia, unspecified; N40.0 Benign prostatic hyperplasia without lower urinary tract symptoms; K21.9 Gastro-esophageal reflux disease without esophagitis; Z86.010 Personal history of colon polyps; E55.9 Vitamin D deficiency, unspecified; Z79.82 Long term (current) use of aspirin; Z79.84 Long term (current) use of oral hypoglycemic drugs; I49.1 Atrial premature depolarization; R94.31 Abnormal electrocardiogram [ECG] [EKG]
CPT/HCPCS: 36415; 71046; 74018; 80053; 81003; 85025; 93005; 99283; A9270

== ENCOUNTER 2021-07-19 00:43 | Day surgery (SDC) | payer OTHER, SELFPAY ==
[2021-07-16 17:13] VITALS: BMI 28.2
--- NOTE | ~2021-07-19 | BM_ITS ---
EXAMINATION: CCL bone marrow asp w bx diag DATE: 07/19/2021 13:54 INDICATION: Multiple myeloma. TECHNIQUE: A time-out was performed to verify the patient's name, date of , and procedure to b e performed. The procedure including the risks, benefits, and alternatives was discussed with the pat ient. Risks discussed included bleeding and infection. The patient understood the risks and agreed to proceed. The skin overlying the left ilium was prepped and draped in usual sterile fashion. Anesth etic was administered with 1% lidocaine subcutaneously. Moderate sedation was achieved with 1 mg Vers ed IV and 50 mcg fentanyl IV. An 11 gauge needle was inserted into the ilium with fluoroscopic emigdio nce. Bone marrow was aspirated. An 8 gauge needle was then inserted into the ilium with fluoroscopic guidance. A core bone marrow biopsy was obtained. There were no immediate complications. Fluoroscopy exposure time was 0.0 minutes. The total number of images was 0. FINDINGS: Real-time fluoroscopy demonstrates a marker overlying the left posterior superior iliac spi ne. IMPRESSION: 1. Fluoro-guided bone marrow aspiration. 2. Fluoro-guided bone marrow core biopsy. Reviewed, dictated and finalized at location A.
[2021-07-19 08:40] LABS: Basophils Absolute Auto 0.1 K/mm3 (0.0-0.1); Basophils Percent Auto 0.6 % (0.2-1.2); Eosinophils Percent Auto 0.4 % (0-4.4); Hematocrit 28.9 % (42.0-52.0); Hemoglobin 9.7 g/dL (14.0-18.0); Immature Granulocyte Absolute 0.03 K/mm3 (0.00-0.031); Immature Granulocyte Percent A 0.4 % (0-0.5); Lymphocytes Percent Auto 10.3 % (18.3-44.2); Mean Corpuscular HGB Conc 33.6 g/dl (32-36); Mean Corpuscular Hemoglobin 31.3 pg (26-34); Mean Corpuscular Volume 93.2 fl (80-100); Mean Platelet Volume 10.2 fl (7.4-10.4); Monocytes Absolute Auto 0.8 K/mm3 (0.1-0.6); Monocytes Percent Auto 10.8 % (2.6-8.5); Neutrophils Percent Auto 77.5 % (45.5-73.1); Platelet Count Result 332 k/mm3 (150-375); Red Cell Distribution Width 13.4 % (11.5-14.5); White Blood Count 7.8 K/mm3 (4.5-10.0)
[2021-07-19 08:41] VITALS: BP 131/79; PULSE 77; RESP 17; TEMP 36; O2SAT 99; BMI 27.1
[2021-07-19 08:55] LABS: INR 1.3; Prothrombin Time 15.4 Seconds (11.1-14.7)
--- NOTE | 2021-07-19 09:05 | WPDMODSED ---
Moderate Sedation Note-Pt Data Patient Data Diagnosis: Multiple myeloma Present Complaint: Multiple myeloma Procedure to be performed/Plan: Fluoro-guided bone marrow biopsy Allergies Allergy/AdvReac Type Severity Reaction Status Date / Time No Known Allergies Allergy Verified 07/16/21 17:13 Home Medications Medication Instructions Recorded Confirmed Type aspirin 81 mg tablet 81 mg PO DAILY 02/26/19 07/16/21 History omeprazole 20 mg tablet,delayed 20 mg PO DAILY 02/26/19 07/16/21 History release cholecalciferol (vitamin D3) 50 50 mcg PO DAILY 10/28/19 07/16/21 History mcg (2,000 unit) tablet blood sugar diagnostic See Rx Instructions .ROUTE 12/07/20 07/16/21 Rx .COMPLEX #200 strip lancets #100 ea 03/01/21 Rx sertraline 50 mg tablet 50 mg PO DAILY #90 tablet 07/09/21 07/16/21 Rx amlodipine 10 mg PO DAILY 07/16/21 07/16/21 History clonidine HCl 0.2 mg PO BID 07/16/21 07/16/21 History fenofibrate nanocrystallized 48 mg PO DAILY 07/16/21 07/16/21 History glipizide 5 mg PO DAILY 07/16/21 07/16/21 History losartan-hydrochlorothiazide 1 tablet PO DAILY 07/16/21 07/16/21 History metformin 1,000 mg PO BID 07/16/21 07/16/21 History metoprolol succinate 50 mg PO QAM 07/16/21 07/16/21 History metoprolol succinate 100 mg PO QAM 07/16/21 07/16/21 History polyethylene glycol 3350 [Miralax] 17 g PO DAILY PRN 07/16/21 07/16/21 History tamsulosin 0.4 mg PO DAILY 07/16/21 07/16/21 History Sedation/Anesthesia: No previous sedation/anesthesia problems (including family history). [facility] Past Medical History Medical History Abnormal colonoscopy (~03/2017) History of benign colon and rectal polyps as well as uncomplicated internal hemorrhoids and diverticulosis on colonoscopy per Dr. Singh. Alcohol abuse, uncomplicated Apneic spell Benign prostatic hyperplasia Body mass index [BMI] 31.0-31.9, adult (08/25/16) Body mass index [BMI] 32.0-32.9, adult (02/10/15) Decreased hearing of both ears Enlarged prostate without lower urinary tract symptoms (luts) Essential hypertension Fatigue Gastroesophageal reflux disease Hx of colonic polyps Hyperlipidemia Normal stress echocardiogram (~07/2007) Snoring Type 2 diabetes mellitus Hemoglobin A1c was 6.6% in May 2019. Vitamin D deficiency Surgical History Surgical History History of hydrocelectomy (~09/2011) Right hydrocelectomy per Dr. Bender. Family History Family History Sibling Diabetes mellitus Other Hypertension Social History Social History Social History: The patient lives in his own home in [place]. 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 He has no children. He is a lifelong nonsmoker and denies alcohol and drug abuse. His sibling, Romeo King, is his surrogate decision maker. He wishes to be a full code. Smoking status: Never smoker Second hand tobacco smoke exposure: No Drinks per week: 12 Alcohol use details: used to drink too much beer in the past. last had an alcoholic drink 2 years go Substance use: never Substance use type: does not use Living arrangements: alone Spiritual care concerns: No Mod Sed Physical Exam Physical Exam Pre Procedural Exam: Normal: Appearance, Lungs, Heart Rate, Heart Rhythm and Abdomen Hours since solid foods: 12 Hours since liquid intake: 12 Mallampati Classification: class II Internal Medicine - PN: Obj Da Vital Signs Vital Signs: Vital Signs - 24 hr 07/19/21 08:41 Temperature 36.0 C L Pulse Rate 77 Respiratory Rate 17 Blood Pressure 131/79 Pulse Oximetry 99 Labs CBC & Chem 7: 07/19/21 08:34 Labs: Laboratory Results - last 24 hr 07/19/21 07/19/21
[2021-07-19 10:00] VITALS: BP 108/61; PULSE 73; RESP 14; TEMP 36.4; O2SAT 98
[2021-07-19 10:15] VITALS: BP 113/62; PULSE 78; RESP 16; O2SAT 98
[2021-07-19 10:30] VITALS: BP 123/69; PULSE 67; RESP 16; O2SAT 99
[2021-07-19 10:45] VITALS: BP 124/73; PULSE 75; RESP 17; O2SAT 99
[2021-07-19 11:00] VITALS: BP 126/71; PULSE 78; RESP 17; O2SAT 97
== END 2021-07-19 11:00 | disposition home or self-care (01) ==
PROVIDERS: PCP Emergency Medicine; Referring Provider Internal Medicine Hematology & Oncology; Visit Provider Radiology Diagnostic Radiology
DX: C90.00 Multiple myeloma not having achieved remission (principal); Z79.82 Long term (current) use of aspirin; Z79.84 Long term (current) use of oral hypoglycemic drugs; N40.0 Benign prostatic hyperplasia without lower urinary tract symptoms; I10 Essential (primary) hypertension; K21.9 Gastro-esophageal reflux disease without esophagitis; E11.9 Type 2 diabetes mellitus without complications; E78.5 Hyperlipidemia, unspecified; E55.9 Vitamin D deficiency, unspecified; Z79.899 Other long term (current) drug therapy
CPT/HCPCS: 36415; 38222; 85025; 85610; 88184; 88185; 88305; 88311; 88313; 88360; 88364; 88365; J1642; J2250; J3010; J7040

== ENCOUNTER 2021-07-21 10:29 | Outpatient (CLI) | payer OTHER, SELFPAY ==
[2021-07-21 10:56] LABS: Lactate Dehydrogenase 344 U/L (313-618)
[2021-07-23 22:27] LABS: Beta-2-Microglobulin 4.15 mg/L (<=2.51)
[2021-07-24 05:28] LABS: Viscosity 1.9 rel to H2O (1.5-1.9)
== END 2021-07-21 10:30 | disposition home or self-care (01) ==
LOC: ANHLAB 10:30
PROVIDERS: PCP Emergency Medicine; Visit Provider Internal Medicine Hematology & Oncology
DX: C90.00 Multiple myeloma not having achieved remission (principal)
CPT/HCPCS: 36415; 82232; 83615; 85810

== ENCOUNTER 2021-07-27 09:06 | Outpatient (CLI) | payer OTHER, SELFPAY ==
--- NOTE | ~2021-07-27 | PE_ITS ---
EXAMINATION: PET skull to mid thigh DATE: 07/27/2021 10:57 INDICATION: Plasma cell disorder TECHNIQUE: Blood glucose level was 144 mg/dL. 11.374 mCi of 18-fluorodeoxyglucose (18-FDG) was admini stered i.v. Low dose computed tomography (CT) images were acquired from the base of the brain to the proximal thighs for attenuation correction and anatomic localization. Positron emission tomography (P ET) images were acquired in the same distribution beginning 59 minutes after injection. Images includ ing fused PET/CT images were reconstructed in axial, coronal, and sagittal planes. Automated exposure control technique was employed. The dose-length product was 571.52mGy-cm. COMPARISON: None FINDINGS: Head/neck: There is symmetric increased activity in the oral cavity and ocular muscles without CT correlate, lik masood physiologic. No pathologically enlarged cervical lymphadenopathy or suspicious foci of increased FDG uptake in the visualized head or neck. Chest: Respiratory motion in the lungs which obscures fine pulmonary parenchymal detail. No pneumonia, suspi cious pulmonary nodules, pulmonary edema or pleural effusion. Heart size is normal. Atherosclerotic c oronary artery calcification. No pericardial effusion. Thoracic aorta is normal in caliber. There are enlarged bilateral axillary lymphadenopathy in the largest on the right measuring 2.8 cm maximal michael rt axis diameter with maximal SUV of 2.5 and the largest on the left measuring 1.3 cm in maximal shor t axis diameter with maximal SUV of 1.6. No pathologically enlarged or FDG avid hilar or mediastinal lymphadenopathy. There are enlarged paraesophageal lymph nodes at the thoracic hiatus measuring up to 1.5 cm with maximal SUV of 1.9. Abdomen/pelvis/proximal thighs: Physiologic renal accumulation and excretion of FDG activity in the kidneys, bladder and along portio ns of ureters. There is diffuse wall thickening of the bladder. Normal degree and heterogenous patter n of increased uptake throughout the liver without radiologic correlate or dominant FDG avid lesion. The gallbladder, pancreas, spleen and bilateral adrenal glands are normal. Mild uptake scattered thro ughout the bowels without radiologic correlate, also likely physiologic. Small fat-containing left in guinal hernia. Mild lymphadenopathy at the root of the mesentery with surrounding groundglass hazines s to the mesenteric fat. More prominent retroperitoneal lymphadenopathy continuing from the level of the thoracic hiatus along the abdominal aorta and inferior vena cava and along the bilateral external iliac chains, many of which are difficult to establish from the adjacent vasculature. For reference one of the larger left para-aortic lymph nodes just below level of the renal arteries measures up to 2.1 cm in maximal short axis diameter with maximal SUV of 2.7. Musculoskeletal: Lucent bone marrow biopsy tracts are seen at the left posterior iliac spine. Anterior fusion at C3-C4 . L5 spondylolysis with bilateral pars interarticularis defects and 4 mm anterolisthesis L5 on S1. Mi ld FDG uptake throughout the bones without discrete FDG avid bone lesions identified. For reference a maximal SUV at the spine and at the pelvis measures approximately 3.3. No suspicious lytic or blasti c bone lesions identified. IMPRESSION: 1. Extensive nonspecific lymphadenopathy including at the bilateral axilla, inferior mediastinum at t he thoracic hiatus, the mesentery and in the retroperitoneum from the upper abdomen through the bilat eral external iliac chains in the pelvis but with only minimal to mild increased FDG uptake. This talavera ses concern for malignancy including extraosseous multiple myeloma, lymphoma or other metastatic dise ase in the appropriate clinical setting. If clinically indicated the 2.8 cm right axillary lymph node would be the most amenable to ultrasound-guided percutaneous biopsy. 2.
[2021-07-27 09:23] LABS: Glucose Point of Care 144 mg/dl (65-105)
== END 2021-07-27 09:07 | disposition home or self-care (01) ==
LOC: ANHIMG 09:06
PROVIDERS: PCP Emergency Medicine; Visit Provider Internal Medicine Hematology & Oncology
DX: D72.9 Disorder of white blood cells, unspecified (principal); C90.00 Multiple myeloma not having achieved remission; R59.1 Generalized enlarged lymph nodes
CPT/HCPCS: 78815; A9552

== ENCOUNTER 2021-07-29 07:09 | Outpatient (CLI) | payer OTHER, SELFPAY ==
[2021-07-29 08:19] LABS: Basophils Absolute Auto 0.1 K/mm3 (0.0-0.1); Basophils Percent Auto 0.8 % (0.2-1.2); Eosinophils Absolute Auto 0.1 K/mm3 (0-0.3); Eosinophils Percent Auto 1.7 % (0-4.4); Hematocrit 29.1 % (42.0-52.0); Hemoglobin 9.3 g/dL (14.0-18.0); Immature Granulocyte Absolute 0.02 K/mm3 (0.00-0.031); Immature Granulocyte Percent A 0.3 % (0-0.5); Lymphocytes Absolute Auto 0.98 K/mm3 (0.9-3.2); Lymphocytes Percent Auto 16.2 % (18.3-44.2); Mean Corpuscular Hemoglobin 30.6 pg (26-34); Mean Corpuscular Volume 95.7 fl (80-100); Mean Platelet Volume 10.6 fl (7.4-10.4); Monocytes Absolute Auto 0.9 K/mm3 (0.1-0.6); Monocytes Percent Auto 14.6 % (2.6-8.5); Neutrophils Percent Auto 66.4 % (45.5-73.1); Platelet Count Result 382 k/mm3 (150-375); Red Blood Count 3.04 M/mm3 (4.6-6.20); Red Cell Distribution Width 13.4 % (11.5-14.5)
[2021-07-29 08:46] LABS: Cholesterol 93 mg/dL (0-200); HDL Direct 25 mg/dL; LDL Cholesterol Direct 49 mg/dL; Triglycerides 95 mg/dL (<150)
[2021-07-29 09:17] LABS: Hemoglobin A1C 6.4 % (<5.7)
== END 2021-07-29 07:10 | disposition home or self-care (01) ==
LOC: ANHLAB 07:10
PROVIDERS: PCP Emergency Medicine; Visit Provider Emergency Medicine
DX: E78.5 Hyperlipidemia, unspecified (principal); E83.52 Hypercalcemia; E11.9 Type 2 diabetes mellitus without complications
CPT/HCPCS: 36415; 80061; 83036; 85025

== ENCOUNTER 2021-08-17 08:46 | Outpatient (CLI) | payer OTHER, SELFPAY ==
[2021-08-17 09:32] LABS: Basophils Absolute Auto 0.1 K/mm3 (0.0-0.1); Basophils Percent Auto 1.1 % (0.2-1.2); Eosinophils Absolute Auto 0.2 K/mm3 (0-0.3); Eosinophils Percent Auto 3.2 % (0-4.4); Hematocrit 27.6 % (42.0-52.0); Immature Granulocyte Absolute 0.04 K/mm3 (0.00-0.031); Immature Granulocyte Percent A 0.6 % (0-0.5); Lymphocytes Absolute Auto 1.87 K/mm3 (0.9-3.2); Lymphocytes Percent Auto 29.7 % (18.3-44.2); Mean Corpuscular HGB Conc 32.6 g/dl (32-36); Mean Corpuscular Hemoglobin 30.6 pg (26-34); Mean Corpuscular Volume 93.9 fl (80-100); Mean Platelet Volume 10.7 fl (7.4-10.4); Monocytes Absolute Auto 0.6 K/mm3 (0.1-0.6); Monocytes Percent Auto 8.7 % (2.6-8.5); Neutrophils Absolute Auto 3.6 K/mm3 (1.3-6.7); Neutrophils Percent Auto 56.7 % (45.5-73.1); Platelet Count Result 293 k/mm3 (150-375); Red Blood Count 2.94 M/mm3 (4.6-6.20); Red Cell Distribution Width 13.5 % (11.5-14.5); White Blood Count 6.3 K/mm3 (4.5-10.0)
[2021-08-17 09:42] LABS: Alanine Aminotransferase 21 U/L (6-50); Albumin Level 4.2 g/dL (3.5-5.1); Alkaline Phosphatase 74 U/L (38-126); Anion Gap 6 mmol/L (8-16); Aspartate Amino Transferase 39 U/L (17-59); Bilirubin,Total 0.3 mg/dL (0.2-1.3); Blood Urea Nitrogen 21 mg/dL (9-20); Calcium 9.7 mg/dL (8.4-10.2); Carbon Dioxide 29 mmol/L (22-30); Chloride 103 mmol/L (98-107); Estimated Glomerular Filt Rate 54; Glucose 138 mg/dL (65-110); Potassium 4.1 mmol/L (3.4-5.0); Sodium 138 mmol/L (137-145)
[2021-08-17 10:10] LABS: Immunoglobulin G 299 mg/dL (700-1600)
[2021-08-17 10:39] LABS: Immunoglobulin A < 40 mg/dL (70-400)
[2021-08-17 10:42] LABS: Immunoglobulin M > 4000 mg/dL (40-230)
[2021-08-20 15:08] LABS: Kappa\\Lambda Light Chains 0.08 (0.26-1.65)
== END 2021-08-17 08:47 | disposition home or self-care (01) ==
PROVIDERS: PCP Emergency Medicine; Visit Provider Internal Medicine Hematology & Oncology
DX: D72.9 Disorder of white blood cells, unspecified (principal)
CPT/HCPCS: 36415; 80053; 82784; 83883; 84155; 84165; 85025; 86334

== ENCOUNTER 2021-11-03 06:55 | Outpatient (CLI) | payer OTHER, SELFPAY ==
[2021-11-03 07:31] LABS: Alanine Aminotransferase 22 U/L (6-50); Albumin Level 4.5 g/dL (3.5-5.1); Alkaline Phosphatase 63 U/L (38-126); Anion Gap 15 mmol/L (8-16); Aspartate Amino Transferase 35 U/L (17-59); Bilirubin,Total 0.3 mg/dL (0.2-1.3); Blood Urea Nitrogen 24 mg/dL (9-20); Calcium 9.5 mg/dL (8.4-10.2); Carbon Dioxide 26 mmol/L (22-30); Chloride 100 mmol/L (98-107); Cholesterol 143 mg/dL (0-200); Estimated Glomerular Filt Rate > 60; Glucose 151 mg/dL (65-110); HDL Direct 40 mg/dL; Potassium 4.1 mmol/L (3.4-5.0); Sodium 141 mmol/L (137-145); Triglycerides 60 mg/dL (<150)
[2021-11-03 07:42] LABS: Hemoglobin A1C 6.2 % (<5.7)
[2021-11-03 07:52] LABS: LDL Cholesterol Direct 74 mg/dL
== END 2021-11-03 06:56 | disposition home or self-care (01) ==
PROVIDERS: PCP Emergency Medicine; Visit Provider Emergency Medicine
DX: E11.9 Type 2 diabetes mellitus without complications (principal); I10 Essential (primary) hypertension
CPT/HCPCS: 36415; 80053; 80061; 83036

== ENCOUNTER 2022-01-28 06:48 | Outpatient (CLI) | payer OTHER, SELFPAY ==
[2022-01-28 08:24] LABS: Hemoglobin A1C 7.7 % (<5.7)
[2022-01-28 12:02] LABS: Alanine Aminotransferase 24 U/L (6-50); Albumin Level 4.2 g/dL (3.5-5.1); Alkaline Phosphatase 63 U/L (38-126); Anion Gap 6 mmol/L (8-16); Aspartate Amino Transferase 31 U/L (17-59); Bilirubin,Total 0.6 mg/dL (0.2-1.3); Blood Urea Nitrogen 25 mg/dL (9-20); Calcium 10.1 mg/dL (8.4-10.2); Carbon Dioxide 28 mmol/L (22-30); Chloride 101 mmol/L (98-107); Cholesterol 165 mg/dL (0-200); Estimated Glomerular Filt Rate > 60; Glucose 216 mg/dL (65-110); HDL Direct 43 mg/dL; Potassium 4.3 mmol/L (3.4-5.0); Sodium 135 mmol/L (137-145); Triglycerides 129 mg/dL (<150)
[2022-01-28 12:13] LABS: LDL Cholesterol Direct 92 mg/dL
== END 2022-01-28 06:49 | disposition home or self-care (01) ==
LOC: ANHLAB 06:49
PROVIDERS: PCP Emergency Medicine; Visit Provider Emergency Medicine
DX: I10 Essential (primary) hypertension (principal)
CPT/HCPCS: 36415; 80053; 80061; 83036

== ENCOUNTER 2022-03-01 07:32 | Outpatient (CLI) | payer OTHER, SELFPAY ==
--- NOTE | ~2022-03-01 | PE_ITS ---
EXAMINATION: PET skull to mid thigh DATE: 03/01/2022 10:07 INDICATION: Waldenstrom macroglobulinemia. TECHNIQUE: Blood glucose level was 207 mg/dL. 9.468 mCi of 18-fluorodeoxyglucose (18-FDG) was adminis tered i.v. Low dose computed tomography (CT) images were acquired from the base of the brain to the p roximal thighs for attenuation correction and anatomic localization. Automated exposure control was e mployed. Dose-length product (DLP) was 780 mGy-cm. Positron emission tomography (PET) images were acq uired in the same distribution. COMPARISON: PET/CT 07/27/2021 FINDINGS: Head/neck: There are no pathologically enlarged lymph nodes. There are bilateral mastoid effusions. T here is widespread increased activity in bone marrow. Chest: The lungs demonstrate mild atelectasis. There is mild scarring in paraspinal right lower lobe. No pleural effusion. Cardiomegaly is noted. There are coronary artery calcifications. No pericardial effusion. There is a small sliding hiatal hernia. There are no pathologically enlarged lymph nodes. There is a hemangioma in T11 vertebral body. There is widespread increased activity in bone marrow. Abdomen/pelvis/proximal thighs: The liver, gallbladder, spleen, pancreas, adrenal glands, and kidneys are normal. There are no dilated loops of bowel. There is diverticulosis of the colon without eviden ce of diverticulitis. The prostate is mildly enlarged. There is a left inguinal hernia containing fat . There are chronic bilateral L5 pars defects. There is widespread increased activity in bone marrow. IMPRESSION: 1. Interval resolution of lymphadenopathy. 2. Widespread increased activity in bone marrow without abnormal CT correlate, which may be bone evonne ow stimulation. Reviewed, dictated and finalized at location A. ARY MONITOR IMPRESSION: 1. Interval resolution of lymphadenopathy. 2. Widespread increased activity in bone marrow without abnormal CT correlate, which may be bone marrow stimulation.
[2022-03-01 08:14] LABS: Glucose Point of Care 207 mg/dl (65-105)
== END 2022-03-01 07:33 | disposition home or self-care (01) ==
PROVIDERS: PCP Emergency Medicine; Visit Provider Internal Medicine Hematology & Oncology
DX: C88.0 Waldenstrom macroglobulinemia (principal)
CPT/HCPCS: 78815; A9552

== ENCOUNTER 2022-03-04 06:50 | Outpatient (CLI) | payer OTHER, SELFPAY ==
[2022-03-03 17:18] VITALS: BMI 29.5
--- NOTE | ~2022-03-04 | BM_ITS ---
EXAMINATION: CCL bone marrow asp w bx diag DATE: 03/04/2022 11:52 INDICATION: Waldenstrom macroglobulinemia. TECHNIQUE: A time-out was performed to verify the patient's name, date of , and procedure to b e performed. The procedure including the risks, benefits, and alternatives was discussed with the pat ient. Risks discussed included bleeding and infection. The patient understood the risks and agreed to proceed. The skin overlying the left ilium was prepped and draped in usual sterile fashion. Anesth etic was administered with 1% lidocaine subcutaneously. Moderate sedation was achieved with 1 mg Vers ed IV and 50 mg IV. An 11 gauge needle was inserted into the ilium with fluoroscopic guidance. Bone marrow was aspirated. An 8 gauge needle was then inserted into the ilium with fluoroscopic guidance. A core bone marrow biopsy was obtained. There were no immediate complications. Fluoroscopy exposure t joe was 0.0 minutes. The total number of images was 15. FINDINGS: Real-time fluoroscopy demonstrates a marker overlying the left posterior superior iliac spi ne. IMPRESSION: 1. Fluoro-guided bone marrow aspiration. 2. Fluoro-guided bone marrow core biopsy. Reviewed, dictated and finalized at location A. ONOPHYSICIST
[2022-03-04 07:15] VITALS: BP 127/74; PULSE 78; RESP 15; TEMP 36.4; O2SAT 97; BMI 28.8
[2022-03-04 07:26] LABS: Basophils Absolute Auto 0.1 K/mm3 (0.0-0.1); Basophils Percent Auto 1.7 % (0.2-1.2); Eosinophils Absolute Auto 0.3 K/mm3 (0-0.3); Eosinophils Percent Auto 3.9 % (0-4.4); Hematocrit 40.6 % (42.0-52.0); Hemoglobin 14.4 g/dL (14.0-18.0); Immature Granulocyte Absolute 0.05 K/mm3 (0.00-0.031); Immature Granulocyte Percent A 0.8 % (0-0.5); Lymphocytes Absolute Auto 1.15 K/mm3 (0.9-3.2); Mean Corpuscular HGB Conc 35.5 g/dl (32-36); Mean Corpuscular Hemoglobin 30.9 pg (26-34); Mean Corpuscular Volume 87.1 fl (80-100); Mean Platelet Volume 11.6 fl (7.4-10.4); Monocytes Absolute Auto 0.7 K/mm3 (0.1-0.6); Neutrophils Absolute Auto 4.1 K/mm3 (1.3-6.7); Neutrophils Percent Auto 64.6 % (45.5-73.1); Platelet Count Result 233 k/mm3 (150-375); Red Blood Count 4.66 M/mm3 (4.6-6.20); Red Cell Distribution Width 13.3 % (11.5-14.5); White Blood Count 6.4 K/mm3 (4.5-10.0)
[2022-03-04 07:35] LABS: INR 0.9
--- NOTE | 2022-03-04 08:36 | WPDMODSED ---
Moderate Sedation Note-Pt Data Patient Data Diagnosis: Waldenstrom macroglobulinemia. Present Complaint: Waldenstrom macroglobulinemia. Procedure to be performed/Plan: Fluoro-guided bone marrow biopsy of ilium. Allergies Allergy/AdvReac Type Severity Reaction Status Date / Time No Known Allergies Allergy Verified 03/04/22 07:10 Home Medications Medication Instructions Recorded Confirmed Type aspirin 81 mg tablet 81 mg PO DAILY 02/26/19 03/03/22 History omeprazole 20 mg tablet,delayed 20 mg PO DAILY 02/26/19 03/03/22 History release cholecalciferol (vitamin D3) 50 50 mcg PO DAILY 10/28/19 03/03/22 History mcg (2,000 unit) tablet blood sugar diagnostic (Accu-Chek See Rx Instructions .Route 12/07/20 03/03/22 Rx Rebeka Plus test strips) .COMPLEX #200 strips lancets (Accu-Chek Softclix #100 ea 03/01/21 02/04/22 Rx Lancets) amlodipine 10 mg tablet 10 mg PO DAILY 07/16/21 03/03/22 History polyethylene glycol 3350 17 gram 17 g PO DAILY PRN Constipation 07/16/21 03/03/22 History oral powder packet (Miralax) allopurinol 300 mg tablet 300 mg PO DAILY 08/03/21 03/03/22 History ibrutinib 420 mg tablet (Imbruvica) 420 mg PO DAILY 09/14/21 03/03/22 History sertraline 50 mg tablet (Zoloft) 50 mg PO DAILY #90 tabs 10/04/21 03/03/22 Rx metformin 1,000 mg tablet 1,000 mg PO BID #180 tabs 11/22/21 03/03/22 Rx tamsulosin 0.4 mg capsule See Rx Instructions .Route 11/29/21 03/03/22 Rx .COMPLEX #90 caps glipizide 5 mg tablet, extended 5 mg PO DAILY #30 tabs 12/06/21 03/03/22 Rx release 24 hr metoprolol succinate 100 mg 100 mg PO QAM #30 tabs 12/06/21 03/03/22 Rx tablet,extended release 24 hr metoprolol succinate 50 mg 50 mg PO QAM #30 tabs 12/06/21 03/03/22 Rx tablet,extended release 24 hr clonidine HCl 0.2 mg tablet 0.2 mg PO BID #180 tabs 01/17/22 03/03/22 Rx losartan 100 1 tablet PO DAILY #30 tabs 02/07/22 03/03/22 Rx mg-hydrochlorothiazide 25 mg tablet semaglutide 3 mg tablet (Rybelsus) 3 mg PO DAILY 30 days #30 tabs 02/09/22 03/03/22 Rx fenofibrate nanocrystallized 48 mg 48 mg PO DAILY #90 tabs 02/14/22 03/03/22 Rx tablet omega 1-qqa-dvv-fish oil 1,000 mg 2 cap PO BID 03/03/22 03/03/22 History (120 mg-180 mg) capsule Sedation/Anesthesia: No previous sedation/anesthesia problems (including family history). [facility] Past Medical History Medical History Abnormal colonoscopy (~03/2017) History of benign colon and rectal polyps as well as uncomplicated internal hemorrhoids and diverticulosis on colonoscopy per Dr. Singh. Alcohol abuse, uncomplicated Apneic spell Benign prostatic hyperplasia Body mass index [BMI] 31.0-31.9, adult (08/25/16) Body mass index [BMI] 32.0-32.9, adult (02/10/15) Decreased hearing of both ears Enlarged prostate without lower urinary tract symptoms (luts) Essential hypertension Fatigue Gastroesophageal reflux disease Hx of colonic polyps Hyperlipidemia Normal stress echocardiogram (~07/2007) Snoring Type 2 diabetes mellitus Hemoglobin A1c was 6.6% in May 2019. Vitamin D deficiency Surgical History Surgical History History of hydrocelectomy (~09/2011) Right hydrocelectomy per Dr. Bender. Family History Family History Sibling Diabetes mellitus Other Hypertension Social History Social History Social History: The patient lives in his own home in [place]. 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 He has no children. He is a lifelong nonsmoker and denies alcohol and drug abuse. His sibling, Romeo King, is his surrogate decision maker. He wishes to be a full code. Smoking status: Never smoker Second hand tobacco smoke exposure: No Alc
[2022-03-04 09:15] VITALS: BP 133/69; PULSE 69; RESP 15; O2SAT 97
[2022-03-04 09:30] VITALS: BP 109/70; PULSE 71; RESP 17; O2SAT 97
--- NOTE | 2022-03-04 09:35 | SUR.PHASEII ---
Pt resting comfortably in bed watching TV, VSS, NAD noted, pt ride called, awaiting discharge instructions, prepare for discharge. No sign of bleeding or hematoma noted to puncture site.
[2022-03-04 09:45] VITALS: BP 111/56; PULSE 67; RESP 13; O2SAT 96
== END 2022-03-04 09:59 | disposition home or self-care (01) ==
LOC: ANHIMG 06:52
PROVIDERS: PCP Emergency Medicine; Referring Provider Internal Medicine Hematology & Oncology; Visit Provider Radiology Diagnostic Radiology
DX: C88.0 Waldenstrom macroglobulinemia (principal)
CPT/HCPCS: 36415; 38222; 85025; 85610; 88184; 88185; 88305; 88311; 88313; 88341; 88342; 88360; J1642; J2250; J3010; J7040

== ENCOUNTER 2022-05-03 06:54 | Outpatient (CLI) | payer OTHER, SELFPAY ==
[2022-05-03 07:59] LABS: Hemoglobin A1C 6.9 % (<5.7)
[2022-05-03 08:04] LABS: Alanine Aminotransferase 25 U/L (6-50); Albumin Level 4.4 g/dL (3.5-5.1); Alkaline Phosphatase 64 U/L (38-126); Anion Gap 7 mmol/L (8-16); Aspartate Amino Transferase 33 U/L (17-59); Bilirubin,Total 0.7 mg/dL (0.2-1.3); Blood Urea Nitrogen 21 mg/dL (9-20); Calcium 9.6 mg/dL (8.4-10.2); Carbon Dioxide 28 mmol/L (22-30); Chloride 103 mmol/L (98-107); Cholesterol 152 mg/dL (0-200); Estimated Glomerular Filt Rate > 60; Glucose 168 mg/dL (65-110); HDL Direct 40 mg/dL; Potassium 3.8 mmol/L (3.4-5.0); Sodium 138 mmol/L (137-145); Triglycerides 114 mg/dL (<150)
[2022-05-03 08:15] LABS: LDL Cholesterol Direct 90 mg/dL
[2022-05-03 13:20] LABS: Creatinine Urine 94.9 mg/dL
== END 2022-05-03 06:55 | disposition home or self-care (01) ==
LOC: ANHLAB 06:55
PROVIDERS: PCP Emergency Medicine; Visit Provider Emergency Medicine
DX: E11.9 Type 2 diabetes mellitus without complications (principal); I10 Essential (primary) hypertension
CPT/HCPCS: 36415; 80053; 80061; 82043; 83036

== ENCOUNTER 2022-11-07 06:44 | Outpatient (CLI) | payer OTHER, SELFPAY ==
[2022-11-07 07:29] LABS: Alanine Aminotransferase 27 U/L (6-50); Albumin Level 4.3 g/dL (3.5-5.1); Alkaline Phosphatase 68 U/L (38-126); Anion Gap 8 mmol/L (8-16); Aspartate Amino Transferase 37 U/L (17-59); Bilirubin,Total 0.7 mg/dL (0.2-1.3); Blood Urea Nitrogen 23 mg/dL (9-20); Calcium 9.8 mg/dL (8.4-10.2); Carbon Dioxide 29 mmol/L (22-30); Chloride 101 mmol/L (98-107); Cholesterol 165 mg/dL (0-200); Estimated Glomerular Filt Rate 59; Glucose 204 mg/dL (65-110); HDL Direct 49 mg/dL; Hemoglobin A1C 7.3 % (<5.7); Potassium 4.3 mmol/L (3.4-5.0); Sodium 138 mmol/L (137-145); Triglycerides 107 mg/dL (<150)
[2022-11-07 07:39] LABS: LDL Cholesterol Direct 96 mg/dL
== END 2022-11-07 06:45 | disposition home or self-care (01) ==
PROVIDERS: PCP Emergency Medicine; Visit Provider Emergency Medicine
DX: E11.9 Type 2 diabetes mellitus without complications (principal); E78.5 Hyperlipidemia, unspecified
CPT/HCPCS: 36415; 80053; 80061; 83036

== ENCOUNTER 2023-02-01 06:54 | Outpatient (CLI) | payer OTHER, SELFPAY ==
[2023-02-01 08:01] LABS: Alanine Aminotransferase 27 U/L (6-50); Albumin Level 4.5 g/dL (3.5-5.1); Alkaline Phosphatase 65 U/L (38-126); Anion Gap 9 mmol/L (8-16); Aspartate Amino Transferase 41 U/L (17-59); Bilirubin,Total 0.9 mg/dL (0.2-1.3); Blood Urea Nitrogen 20 mg/dL (9-20); Calcium 9.9 mg/dL (8.4-10.2); Carbon Dioxide 28 mmol/L (22-30); Chloride 102 mmol/L (98-107); Cholesterol 157 mg/dL (0-200); Estimated Glomerular Filt Rate > 60; Glucose 166 mg/dL (65-110); HDL Direct 47 mg/dL; Potassium 3.6 mmol/L (3.4-5.0); Sodium 139 mmol/L (137-145); Triglycerides 101 mg/dL (<150)
[2023-02-01 08:11] LABS: LDL Cholesterol Direct 89 mg/dL
[2023-02-01 08:37] LABS: Hemoglobin A1C 6.7 % (<5.7)
[2023-02-01 08:44] LABS: Vitamin D 25 Hydroxy 51.8 ng/mL
== END 2023-02-01 06:55 | disposition home or self-care (01) ==
PROVIDERS: PCP Emergency Medicine; Visit Provider Emergency Medicine
DX: E78.5 Hyperlipidemia, unspecified (principal); E55.9 Vitamin D deficiency, unspecified; I10 Essential (primary) hypertension
CPT/HCPCS: 36415; 80053; 80061; 82306; 83036

== ENCOUNTER 2023-05-03 06:48 | Outpatient (CLI) | payer OTHER, SELFPAY ==
[2023-05-03 07:21] LABS: Alanine Aminotransferase 24 U/L (6-50); Albumin Level 4.3 g/dL (3.5-5.1); Alkaline Phosphatase 62 U/L (38-126); Anion Gap 7 mmol/L (8-16); Aspartate Amino Transferase 38 U/L (17-59); Bilirubin,Total 0.9 mg/dL (0.2-1.3); Blood Urea Nitrogen 23 mg/dL (9-20); Calcium 10.2 mg/dL (8.4-10.2); Carbon Dioxide 28 mmol/L (22-30); Chloride 102 mmol/L (98-107); Cholesterol 154 mg/dL (0-200); Estimated Glomerular Filt Rate > 60; Glucose 179 mg/dL (65-110); HDL Direct 47 mg/dL; Potassium 3.9 mmol/L (3.4-5.0); Sodium 137 mmol/L (137-145); Triglycerides 100 mg/dL (<150)
[2023-05-03 07:32] LABS: Hemoglobin A1C 7.8 % (<5.7)
[2023-05-03 07:32] LABS: LDL Cholesterol Direct 98 mg/dL
[2023-05-03 07:47] LABS: Vitamin D 25 Hydroxy 43.1 ng/mL
[2023-05-03 14:46] LABS: Microalbumin Urine Random 34.3 mg/L (0-16.7)
[2023-05-03 14:56] LABS: MALB Creatinine Ratio 31.8 mg/g (0-30)
== END 2023-05-03 06:49 | disposition home or self-care (01) ==
PROVIDERS: PCP Emergency Medicine; Visit Provider Emergency Medicine
DX: E55.9 Vitamin D deficiency, unspecified (principal); E11.9 Type 2 diabetes mellitus without complications; E78.5 Hyperlipidemia, unspecified
CPT/HCPCS: 36415; 80053; 80061; 82043; 82306; 83036

== ENCOUNTER 2023-08-09 06:53 | Outpatient (CLI) | payer OTHER, SELFPAY ==
[2023-08-09 07:36] LABS: Alanine Aminotransferase 26 U/L (6-50); Albumin Level 4.5 g/dL (3.5-5.1); Alkaline Phosphatase 71 U/L (38-126); Anion Gap 5 mmol/L (4-12); Aspartate Amino Transferase 38 U/L (17-59); Bilirubin,Total 0.7 mg/dL (0.2-1.3); Blood Urea Nitrogen 19 mg/dL (9-20); Calcium 9.5 mg/dL (8.4-10.2); Carbon Dioxide 28 mmol/L (22-30); Chloride 103 mmol/L (98-107); Cholesterol 155 mg/dL (0-200); Estimated Glomerular Filt Rate > 60; Glucose 168 mg/dL (65-110); HDL Direct 43 mg/dL; Potassium 4.2 mmol/L (3.4-5.0); Sodium 136 mmol/L (137-145); Triglycerides 97 mg/dL (<150)
[2023-08-09 07:47] LABS: LDL Cholesterol Direct 93 mg/dL
[2023-08-09 07:58] LABS: Creatinine Urine 81.4 mg/dL
[2023-08-09 08:02] LABS: MALB Creatinine Ratio 75.3 mg/g (0-30); Microalbumin Urine Random 61.3 mg/L (0-16.7)
[2023-08-09 08:08] LABS: Hemoglobin A1C 6.8 % (<5.7)
[2023-08-09 08:24] LABS: Vitamin D 25 Hydroxy 51.8 ng/mL
== END 2023-08-09 06:54 | disposition home or self-care (01) ==
LOC: ANHLAB 06:53
PROVIDERS: PCP Emergency Medicine; Visit Provider Emergency Medicine
DX: E78.5 Hyperlipidemia, unspecified (principal); I10 Essential (primary) hypertension; E11.9 Type 2 diabetes mellitus without complications; E55.9 Vitamin D deficiency, unspecified
CPT/HCPCS: 36415; 80053; 80061; 82043; 82306; 83036

== ENCOUNTER 2023-11-08 06:50 | Outpatient (CLI) | payer OTHER, SELFPAY ==
[2023-11-08 08:19] LABS: Alanine Aminotransferase 28 U/L (6-50); Albumin Level 4.4 g/dL (3.5-5.1); Alkaline Phosphatase 68 U/L (38-126); Anion Gap 11 mmol/L (4-12); Aspartate Amino Transferase 42 U/L (17-59); Bilirubin,Total 0.8 mg/dL (0.2-1.3); Blood Urea Nitrogen 22 mg/dL (9-20); Calcium 10.1 mg/dL (8.4-10.2); Carbon Dioxide 28 mmol/L (22-30); Chloride 97 mmol/L (98-107); Cholesterol 170 mg/dL (0-200); Estimated Glomerular Filt Rate > 60; Glucose 177 mg/dL (65-110); HDL Direct 50 mg/dL; Potassium 3.6 mmol/L (3.4-5.0); Sodium 136 mmol/L (137-145); Triglycerides 120 mg/dL (<150)
[2023-11-08 08:30] LABS: LDL Cholesterol Direct 100 mg/dL
[2023-11-08 09:10] LABS: Hemoglobin A1C 7.3 % (<5.7)
[2023-11-08 10:39] LABS: Vitamin D 25 Hydroxy 44.3 ng/mL
[2023-11-08 12:13] LABS: Microalbumin Urine Random 52.5 mg/L (0-16.7)
== END 2023-11-08 06:51 | disposition home or self-care (01) ==
LOC: ANHLAB 06:51
PROVIDERS: PCP Emergency Medicine; Visit Provider Emergency Medicine
DX: E55.9 Vitamin D deficiency, unspecified (principal); E11.9 Type 2 diabetes mellitus without complications; E78.5 Hyperlipidemia, unspecified
CPT/HCPCS: 36415; 80053; 80061; 82043; 82306; 83036

== ENCOUNTER 2024-02-07 06:52 | Outpatient (CLI) | payer OTHER, SELFPAY ==
[2024-02-07 07:54] LABS: Alanine Aminotransferase 25 U/L (6-50); Albumin Level 4.5 g/dL (3.5-5.1); Alkaline Phosphatase 58 U/L (38-126); Anion Gap 4 mmol/L (4-12); Aspartate Amino Transferase 41 U/L (17-59); Bilirubin,Total 1.1 mg/dL (0.2-1.3); Blood Urea Nitrogen 20 mg/dL (9-20); Calcium 10.2 mg/dL (8.4-10.2); Carbon Dioxide 31 mmol/L (22-30); Chloride 103 mmol/L (98-107); Cholesterol 167 mg/dL (0-200); Estimated Glomerular Filt Rate > 60; Glucose 164 mg/dL (65-110); HDL Direct 47 mg/dL; Potassium 4.2 mmol/L (3.4-5.0); Sodium 138 mmol/L (137-145); Triglycerides 115 mg/dL (<150)
[2024-02-07 07:55] LABS: Hemoglobin A1C 7.2 % (<5.7)
[2024-02-07 08:05] LABS: LDL Cholesterol Direct 91 mg/dL
[2024-02-07 11:33] LABS: Creatinine Urine 93.5 mg/dL
[2024-02-07 11:36] LABS: MALB Creatinine Ratio 80.7 mg/g (0-30); Microalbumin Urine Random 75.5 mg/L (0-16.7)
[2024-02-07 11:48] LABS: Vitamin D 25 Hydroxy 49.4 ng/mL
== END 2024-02-07 06:53 | disposition home or self-care (01) ==
PROVIDERS: PCP Emergency Medicine; Visit Provider Emergency Medicine
DX: E78.5 Hyperlipidemia, unspecified (principal); E11.9 Type 2 diabetes mellitus without complications; E55.9 Vitamin D deficiency, unspecified
CPT/HCPCS: 36415; 80053; 80061; 82043; 82306; 83036

== ENCOUNTER 2024-05-08 06:55 | Outpatient (CLI) | payer OTHER, SELFPAY ==
--- OUTSIDE RECORDS SUMMARY | 2024-05-08 06:59 | XMS_ITS | Encounter Summary ---
Author Organization [facility] Address [address] [place] [address] Care Team Providers Care Cdl Dedicated Truck Driver Name Role Phone Wallace De La Garza MD Primary Care Provider + [phone] Encounter Details Date Type Department Care Team (Late st Contact Info) Description 10/27/2023 Specialty Pharmacy [facility] [place] [address] [place] [id number] Yaritza Lucas PHARMACIST Social History Tobacco Use Types Packs/Day Years Used Date Smoking Tobacco: Never Smokeless Tobacco: Never Alcohol Use Standard Drinks/Week Comments Yes 0 (1 standard drink = 0.6 oz pur e alcohol) occasional Sex and Gender Information Value Date Recorded Sex Assigned at Not on file 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 Gender Identity Not on file Sexual Orientation Not on file documented as of this encounter Plan of Treatment Upcoming Encounters Date Type Department Care Team (Late st Contact Info) Description 06/11/2024 9:00 AM CDT Office Visit [facility] [address] [place] [address] Jone Chery MD [address] [place] [address] documented as of this encounter Visit Diagnoses Not on filedocumented in this encounter Care Teams Cdl Dedicated Truck Driver Relationship Specialty Start Date End Date Wallace De La Garza MD [address] [place] [address] PCP - General Internal Medicine 06/04/21 documented as of this encounter
--- OUTSIDE RECORDS SUMMARY | 2024-05-08 06:59 | XMS_ITS | Clinical Summary ---
Author Organization [facility] Address [address] [place] [id number] Care Team Providers Care Materials Management Manager Name Role Phone Unavailable Primary Care Provider Unavailabl e Social History Tobacco Use Types Packs/Day Years Used Date Smoking Tobacco: Never Assessed Sex and Gender Information Value Date Recorded Sex Assigned at Not on file Legal Sex Male 5:01 PM CDT Gender Identity Not on file Sexual Orientation Not on file Plan of Treatment Health Maintenance Due Date Last Done Comments Colorectal Cancer Screening Colonoscopy (10 Years) 1950 Hepatitis C 1966 DTaP, Tdap and Td Vaccines ( 1 - Tdap) 12/28/1967 Zoster Vaccines (1 of 2) 1998 Pneumococcal Vaccine: 65+ Ye ars (1 of 1 - PCV) 2013 COVID-19 Vaccine ( - 2023-2 5 season) 2023 Influenza Adult (#1) 2023 RSV Immunization or 60+ Years (1 - 1-dose 75+ series) 12/28/2023 Meningococcal B Vaccine Aged Out No l onger eligible based on patient's age to complete this topic Meningococcal Vaccine Aged Out No robert gabrielle eligible based on patient's age to complete this topic RSV Immunizations Under 20 Months Aged Out No longer eligible based on patient's age to complete this topic
--- OUTSIDE RECORDS SUMMARY | 2024-05-08 06:59 | XMS_ITS | Clinical Summary ---
Author Organization [facility] Ella london [facility] Address [address] [address] Care Team Providers Care Animal Ride Manager Name Role Phone Wallace DeL a Garza MD Primary Care Provider + [phone] Allergies No known active allergies Medications tamsulosin (FLOMAX) 0.4 mg capsule Take 0.4 mg by mouth daily. 06/01/19 Active metoprolol succinate (TOPROL XL) 50 mg Extended Release 24 hour tablet Take 50 mg by mouth daily. 03/09/19 22 Active metoprolol succinate (TOPROL XL) 100 mg Extended Release 24 hour tablet Take 100 mg by mouth daily. 03/09/19 22 Active metFORMIN (GLUCOPHAGE) 1,000 mg tablet TAKE 1 TABLET BY MOUTH TWICE DAILY WITH THE MORNING AND EVENING MEAL 06/01/19 22 Active losartan-hydroCHLOR Othiazide (HYZAAR) 100-25 mg tablet Take 1 Tablet by mouth daily. 05/11/19 22 Active Accu-Chek Fastclix Lancet Drum USE ONCE A DAY TO CHECK BLOOD SUGAR 03/01/19 Active glipiZIDE (GLUCOTROL XL) 5 mg Extended Release 24 hour tablet Take 5 mg by mouth daily. 03/09/19 22 Active fenofibrate nanocrystallized (TRICOR) 48 mg tablet Take 48 mg by mouth daily. 05/18/19 22 Active amLODIPine (NORVASC) 10 mg tablet Take 10 mg by mouth daily. 05/04/19 22 Active sertraline (ZOLOFT) 50 mg tablet Take 50 mg by mouth daily. 07/10/19 22 Active cloNIDine HCL (CATAPRES) 0.2 mg tablet Take 0.2 mg by mouth 2 times daily. 07/22/19 22 Active ondansetron (ZOFRAN ODT) 8 mg Tablet, Rapid Dissolve Dissolve 1 tablet on top of tongue then swallow with saliva every 8 hours as needed for nausea or vomiting 30 Tablet 2 09/15/19 22 Active semaglutide (Rybelsus) 14 mg Tablet Take by mouth. 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 Waldenstrom macroglobulinemia 07/29/2021 Hypercalcemia 06/04/2021 Resolved Problems Problem Noted Date Diagnosed Date Resolved Date 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 Encounters Date Type Department Care Team Description 05/03/2024 Refill [facility] Oncology and Hematology - [place] [address] [place] [address] Jone Chery MD Low grade B-cell lymphoma (CMS/HCC); Hypercalcemia 04/29/2024 Orders Only [facility] Oncology and Hematology - Jr [address] [place] [address] Jone Chery MD Waldenstrom macroglobulinemia 04/17/2024 External Device Data STL ABSTRACTION Provider, Abstract 04/17/2024 External Device Data STL ABSTRACTION Provider, Abstract 04/15/2024 Orders Only [facility] Oncology and Hematology - [place] [address] [place] [address] Jone Chery MD Waldenstrom macroglobulinemia 04/03/2024 Refill [facility] Oncology and Hematology - [place] [address] [place] [address] Jone Chery MD Plasma cell disorder 04/01/2024 Orders Only [facility] Oncology and Hematology - [place] [address] [place] [address] Jone Chery MD Waldenstrom macroglobulinemia 03/26/2024 External Device Data STL ABSTRACTION Provider, Abstract 03/20/2024 External Device Data STL ABSTRACTION Provider, Abstract 03/19/2024 9:30 AM RAIL FILLER [facility] Oncology and Hematology - [place] [address] [place] [address] Jone Chery MD Waldenstrom macroglobulinemia (Primary Dx) 03/18/2024 Orders Only [facility] Oncology and Hematology - [place] [address] [place] [address] Jone Chery MD Waldenstrom macroglobulinemia 03/11/2024 Orders Only [facility] Oncology and Hematology - [place] [address] [place] [address] Jone Chery MD 03/08/2024 Orders Only [facility] Oncology and Hematology - [place] [address] [place] [address] Jone Chery MD 03/04/2024 Orders Only [facility] Oncology and Hematology - [place] [address] [place] [address] Jone Chery MD Waldenstrom macroglobulinemia 02/19/2024 Orders Only [facility] Oncology and Hematology - [place] [address] [place] [address] Jone Chery MD Waldenstrom macroglobulinemia 02/12/2024 Orders Only [facility] Oncology and Hematology - [place] [address] [place] [address] Jone Chery MD from Last 3 Months Family History Relation Name Status Comments Brother 1 Alive Brother 2 Alive Father Mother Social History Tobacco Use Types Packs/Day Years Used Date Smoking Tobacco: Never Smokeless Tobacco: Never Tobacco Cessation:Counseling Given: Not Answered Alcohol Use Standard Drinks/Week Comments Yes 0 (1 standard drink = 0.6 oz pur e alcohol) occasional Sex and Gender Information Value Date Recorded Sex Assigned at Not on file Legal Sex Male 9:14 AM RAIL FILLER Gender Identity Not on file Sexual Orientation Not on file Last Filed Vital Signs Vital Sign Reading Time Taken Comments Blood Pressure 131/81 03/19/2024 9:39 AM RAIL FILLER Pulse 63 03/19/2024 9:39 AM RAIL FILLER Temperature 35.7 C (96.2 F) 03/19/2024 9:39 AM RAIL FILLER Respiratory Rate 14 03/19/2024 9:39 AM RAIL FILLER Oxygen Saturation 98% 03/19/2024 9:39 AM RAIL FILLER Inhaled Oxygen Concentration - - Weight 83.9 kg (185 lb) 03/19/2024 9:39 AM RAIL FILLER Height 170.2 cm (5' 7 ) 11/12/2021 8:45 AM CDT Body Mass Index 28.98 11/12/2021 8:45 AM CDT Plan of Treatment Upcoming Encounters Date Type Department Care Team (Late st Contact Info) Description 06/11/2024 9:00 AM CDT Office Visit [facility] Oncology and Hematology [facility] [address] [facility] [address] [place] [address] Jone Chery MD [address] [facility] [address] [place] [address] Health Maintenance Due Date Last Done Comments DTAP/TDAP/TD VACCINES (1 - Tdap) 12/28/1967 COLORECTAL SCREENING 1993 Colorectal Cancer Screening 1993 FIT-DNA Q 3 years 1993 FIT/FOBT Q 1 year 1993 Flex Sig/CT Colonography Q 5 years 1993 PNEUMOCOCCAL VACCINE 50+ YEARS (1 of 1 - PCV) 12/27/18 99 ZOSTER VACCINE (1 of 2) 1998 INFLUENZA VACCINE (#1) 2023 RSV VACCINE (60+ or ) (1 - 1-dose 75+ series) 12/28/2023 Preventative Visit- Commercial 02/28/2024 Procedures Procedure Name Priority Date/Time Associated Diagnosis Comments CBC WITH DIFFERENTIAL Routine 03/01/2024 1:58 PM RAIL FILLER PROTEIN ELECTROPHORESIS, CSF Routine 03/01/2024 12:46 PM RAIL FILLER PROTEIN ELECTROPHORESIS, CSF Routine 03/01/2024 12:44 PM RAIL FILLER COMPREHENSIVE METABOLIC PANEL Routine 03/01/2024 11:26 AM RAIL FILLER PROTEIN ELECTROPHORESIS, CSF Routine 03/01/2024 11:22 AM RAIL FILLER COMPREHENSIVE METABOLIC PANEL Routine 02/09/2024 1:19 PM RAIL FILLER from Last 3 Months Results * CBC WITH DIFFERENTIAL (03/01/2024 1:58 PM RAIL FILLER) Blood us Jone Chery MD HEMATOLOGY ORDERABLES Final Res ult * PROTEIN ELECTROPHORESIS, CSF (03/01/2024 12:46 PM RAIL FILLER) Only the most recent of3 resultswithin the time period is included. Cerebrospinal fluid CEREBROSPINAL FLUID / Unknown us Jone Chery MD BODY FLUIDS AND STOOLS Final Re sult * COMPREHENSIVE METABOLIC PANEL (03/01/2024 11:26 AM RAIL FILLER) Only the most recent of2 resultswithin the time period is included. Blood us Jone Chery MD CHEMISTRY ORDERABLES Final Resu lt from Last 3 Months Insurance [employer] [facility]ESS RX [facility] [employer] Commercial Care Teams Animal Ride Manager Relationship Specialty Start Date End Date Wallace De La Garza MD [address] [place] [address] PCP - General Internal Medicine 06/04/21
[2024-05-08 08:06] LABS: Hemoglobin A1C 7.4 % (<5.7)
[2024-05-08 08:25] LABS: Alanine Aminotransferase 24 U/L (6-50); Albumin Level 4.3 g/dL (3.5-5.1); Alkaline Phosphatase 67 U/L (38-126); Anion Gap 6 mmol/L (4-12); Aspartate Amino Transferase 34 U/L (17-59); Bilirubin,Total 0.8 mg/dL (0.2-1.3); Blood Urea Nitrogen 20 mg/dL (9-20); Calcium 9.9 mg/dL (8.4-10.2); Carbon Dioxide 29 mmol/L (22-30); Chloride 102 mmol/L (98-107); Cholesterol 159 mg/dL (0-200); Estimated Glomerular Filt Rate > 60; Glucose 186 mg/dL (65-110); HDL Direct 48 mg/dL; Potassium 4.3 mmol/L (3.4-5.0); Sodium 137 mmol/L (137-145); Triglycerides 92 mg/dL (<150)
[2024-05-08 08:42] LABS: LDL Cholesterol Direct 95 mg/dL
== END 2024-05-08 06:56 | disposition home or self-care (01) ==
LOC: ANHLAB 06:57
PROVIDERS: PCP Emergency Medicine; Visit Provider Emergency Medicine
DX: E78.5 Hyperlipidemia, unspecified (principal); E55.9 Vitamin D deficiency, unspecified; E11.9 Type 2 diabetes mellitus without complications
CPT/HCPCS: 36415; 80053; 80061; 82306; 83036

== ENCOUNTER 2024-08-07 06:55 | Outpatient (CLI) | payer OTHER, SELFPAY ==
--- OUTSIDE RECORDS SUMMARY | 2024-08-07 06:59 | XMS_ITS | Encounter Summary ---
Author Organization [facility] Address [address] [place] [address] Care Team Providers Care Instructor Private Name Role Phone Wallace De La Garza MD Primary Care Provider [phone] Encounter Details Date Type Department Care Team (Late st Contact Info) Description 10/27/2023 Specialty Pharmacy [facility] [place] [address] [place] [address] Yaritza Lucas PHARMACIST Social History Tobacco Use Types Packs/Day Years Used Date Smoking Tobacco: Never Smokeless Tobacco: Never Alcohol Use Standard Drinks/Week Comments Yes 0 (1 standard drink = 0.6 oz pur e alcohol) occasional Sex and Gender Information Value Date Recorded Sex Assigned at Not on file Legal Sex Male 9:14 AM PASSENGER RELATIONS REPRESENTATIVE Gender Identity Not on file Sexual Orientation Not on file documented as of this encounter Plan of Treatment Upcoming Encounters Date Type Department Care Team (Late st Contact Info) Description 09/10/2024 9:00 AM CDT Office Visit [facility] Oncology and Hematology - [place] [address] [place] [address] Jone Chery MD [address] [facility] [address] [place] [address] documented as of this encounter Visit Diagnoses Not on filedocumented in this encounter Care Teams Instructor Private Relationship Specialty Start Date End Date Wallace De La Garza MD [address] [place] [address] PCP - General Internal Medicine 06/04/21 documented as of this encounter
--- OUTSIDE RECORDS SUMMARY | 2024-08-07 06:59 | XMS_ITS | Clinical Summary ---
Author Organization [facility] Ella london [facility] Address [address] [place] [address] Care Team Providers Care College Athlete Name Role Phone Wallace De La Garza MD Primary Care Provider + [phone] Allergies No known active allergies Medications tamsulosin [...] TABLET(300 MG) BY MOUTH DAILY 90 Tablet 07/31/19 25 Active allopurinoL (ZYLOPRIM) 300 mg tabletIndications:L ow grade B-cell lymphoma (CMS/HCC),Hypercalc emia TAKE 1 TABLET(300 MG) BY MOUTH DAILY 90 Tablet 05/04/19 25 2024 Discontinued Active Problems Problem Noted Date Diagnosed Date 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 Waldenstrom macroglobulinemia 07/29/2021 Hypercalcemia 06/04/2021 Resolved Problems Problem Noted Date Diagnosed Date Resolved Date 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 Encounters Date Type Department Care Team Description 07/30/2024 External Device Data STL ABSTRACTION Provider, Abstract 07/30/2024 Refill [facility] Oncology and Hematology - [place] [address] [place] [address] Jone Chery MD Low grade B-cell lymphoma (CMS/HCC); Hypercalcemia 06/11/2024 9:00 AM CDT Office Visit [facility] Oncology and Hematology - [place] [address] [place] [address] Jone Chery MD Waldenstrom macroglobulinemia (Primary Dx) 06/07/2024 Orders Only [facility] Oncology and Hematology - [place] [address] [place] [address] Jone Chery MD 06/05/2024 Orders Only [facility] Oncology and Hematology - [place] [address] [place] [address] Jone Chery MD 06/04/2024 Orders Only [facility] Oncology and Hematology - [place] [address] [place] [address] Jone Chery MD 05/16/2024 Abstract [facility] Oncology and Hematology - [place] [address] [place] [address] Jone Chery MD from Last 3 Months [...] on file Legal Sex Male 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 Gender Identity Not on file Sexual Orientation Not on file Last Filed Vital Signs Vital Sign Reading Time Taken Comments Blood Pressure 116/69 06/11/2024 8:54 AM CDT Pulse 64 06/11/2024 8:54 AM CDT Temperature 35.7 C (96.3 F) 06/11/2024 8:54 AM CDT Respiratory Rate 15 06/11/2024 8:54 AM CDT Oxygen Saturation 98% 06/11/2024 8:54 AM CDT Inhaled Oxygen Concentration - - Weight 84.1 kg (185 lb 6.4 oz) 06/11/2024 8:54 A M CDT Height 170.2 cm (5' 7) 11/12/2021 8:45 AM CDT Body Mass Index 29.04 11/12/2021 8:45 AM CDT Plan of Treatment Upcoming Encounters Date Type Department Care Team (Late st Contact Info) Description 09/10/2024 9:00 AM CDT Office Visit [facility] Oncology and Hematology - [place] [address] [place] [address] Jone Chery MD [address] [place] [address] Health Maintenance Due Date Last [...] ) (1 - 1-dose 75+ series) 12/28/2023 Procedures Procedure Name Priority Date/Time Associated Diagnosis Comments PROTEIN ELECTROPHORESIS, CSF Routine 06/03/2024 1:59 PM CDT CBC WITH AUTODIFFERENTIAL Routine 2024 12:04 PM CDT KAPPA/LAMBDA LIGHT CHAINS Routine 2024 7:58 AM CDT from Last 3 Months Results * PROTEIN ELECTROPHORESIS, CSF (06/03/2024 1:59 PM CDT) Cerebrospinal fluid CEREBROSPINAL FLUID / Unknown us Jnoe Chery MD BODY FLUIDS AND STOOLS Final Re sult * CBC WITH AUTODIFFERENTIAL (06/03/2024 12:04 PM CDT) Blood us Jone Chery MD HEMATOLOGY ORDERABLES Final Res ult * KAPPA/LAMBDA, FREE LIGHT CHAINS (06/03/2024 7:58 AM CDT) Blood us Jone Chery MD CHEMISTRY ORDERABLES Final Resu lt from Last 3 Months Insurance [facility] BENEFIT PLANS RX [facility] [employer] Commercial Care Teams College Athlete Relationship Specialty Start Date End Date Wallace De La Garza MD [address] [place] [address] PCP - General Internal Medicine 06/04/21
[2024-08-07 07:37] LABS: Alanine Aminotransferase 23 U/L (6-50); Albumin Level 4.5 g/dL (3.5-5.1); Alkaline Phosphatase 64 U/L (38-126); Anion Gap 7 mmol/L (4-12); Aspartate Amino Transferase 41 U/L (17-59); Bilirubin,Total 0.9 mg/dL (0.2-1.3); Blood Urea Nitrogen 20 mg/dL (9-20); Calcium 10.3 mg/dL (8.4-10.2); Carbon Dioxide 27 mmol/L (22-30); Chloride 103 mmol/L (98-107); Cholesterol 167 mg/dL (0-200); Estimated Glomerular Filt Rate > 60; Glucose 176 mg/dL (65-110); HDL Direct 48 mg/dL; LDL Cholesterol Direct 88 mg/dL; Sodium 137 mmol/L (137-145); Total Protein 6.9 g/dL (6.3-8.2); Triglycerides 106 mg/dL (<150)
[2024-08-07 08:07] LABS: Hemoglobin A1C 7.2 % (<5.7)
[2024-08-07 09:55] LABS: Vitamin D 25 Hydroxy 42.4 ng/mL
[2024-08-07 12:06] LABS: Creatinine Urine 85.8 mg/dL; MALB Creatinine Ratio 90.7 mg/g (0-30); Microalbumin Urine Random 77.8 mg/L (0-16.7)
== END 2024-08-07 06:56 | disposition home or self-care (01) ==
LOC: ANHLAB 06:57
PROVIDERS: PCP Emergency Medicine; Visit Provider Emergency Medicine
DX: E78.5 Hyperlipidemia, unspecified (principal); E11.9 Type 2 diabetes mellitus without complications; E55.9 Vitamin D deficiency, unspecified
CPT/HCPCS: 36415; 80053; 80061; 82043; 82306; 83036

== ENCOUNTER 2024-11-13 06:54 | Outpatient (CLI) | payer OTHER, SELFPAY ==
--- OUTSIDE RECORDS SUMMARY | 2024-11-13 06:56 | XMS_ITS | Clinical Summary ---
Author Organization [facility] Address [address] [place] [address] Care Team Providers Care Fur Trimmer Name Role Phone Unavailable Primary Care Provider [...] Td Vaccines ( 1 - Tdap) 12/28/1967 Pneumococcal Vaccine: 50+ Ye ars (1 of 1 - PCV) 1998 Zoster Vaccines (1 of 2) 1998 RSV Immunization or 60+ Years (1 - 1-dose 75+ series) 12/28/2023 COVID-19 Vaccine ( - 2023-2 5 season) 2024 Meningococcal B Vaccine Aged Out No l onger eligible based on patient's age to complete this topic Meningococcal Vaccine Aged Out No robert gabrielle eligible based on patient's age to complete this topic RSV Immunizations Under 20 Months Aged Out No longer eligible based on patient's age to complete this topic
--- OUTSIDE RECORDS SUMMARY | 2024-11-13 06:56 | XMS_ITS | Clinical Summary ---
Author Organization [facility] Ella london [facility] Address [address] [place] [address] Care Team Providers Care And Taxi Instructor Bus Trolley Name Role Phone Wallace De La Garza MD Primary Care Provider + [phone] Allergies No known active allergies Medications tamsulosin (FLOMAX) 0.4 mg capsule Take 0.4 mg by mouth daily. 06/01/19 Active metoprolol succinate (TOPROL XL) 50 mg Extended Release 24 hour tablet Take 50 mg by mouth daily. 03/09/19 Active metoprolol succinate (TOPROL XL) 100 mg [...] TAKE 1 TABLET (420MG) BY MOUTH DAILY 28 Tablet 10/17/19 25 Active allopurinoL (ZYLOPRIM) 300 mg tabletIndications:L ow grade B-cell lymphoma (CMS/HCC),Hypercalc emia TAKE 1 TABLET(300 MG) BY MOUTH DAILY 90 Tablet 10/30/19 25 Active ibrutinib (Imbruvica) 420 mg tabletIndications:P lasma cell disorder TAKE 1 TABLET (420MG) BY MOUTH DAILY 30 Tablet 5 04/03/19 25 2024 Discontinued allopurinoL (ZYLOPRIM) 300 mg tabletIndications:L ow grade B-cell lymphoma (CMS/HCC),Hypercalc emia TAKE 1 TABLET(300 MG) BY MOUTH DAILY 90 Tablet 07/31/19 25 2024 Discontinued Active Problems Problem Noted Date Diagnosed Date 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 Waldenstrom macroglobulinemia 07/29/2021 Hypercalcemia 06/04/2021 Resolved Problems Problem Noted Date Diagnosed Date Resolved Date 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 Encounters Date Type Department Care Team Description 11/12/2024 External Device Data STL ABSTRACTION Provider, Abstract 11/05/2024 Orders Only [facility] Oncology and Hematology [facility] [address] [place] [address] Jone Chery MD 10/29/2024 External Device Data STL ABSTRACTION Provider, Abstract 10/29/2024 External Device Data STL ABSTRACTION Provider, Abstract 10/26/2024 Refill [facility] Oncology and Hematology [facility] [address] [place] [address] Jone Chery MD Low grade B-cell lymphoma (CMS/HCC); Hypercalcemia 10/16/2024 External Device Data STL ABSTRACTION Provider, Abstract 10/16/2024 Refill [facility] Oncology and Hematology [facility] [address] [place] [address] Jone Chery MD Plasma cell disorder 10/02/2024 External Device Data STL ABSTRACTION Provider, Abstract 10/01/2024 External Device Data STL ABSTRACTION Provider, Abstract 09/11/2024 External Device Data STL ABSTRACTION Provider, Abstract 09/11/2024 External Device Data STL ABSTRACTION Provider, Abstract 09/10/2024 9:00 AM CDT Office Visit [facility] Oncology and Hematology [facility] [address] [place] [address] Jone Chery MD Low grade B-cell lymphoma (CMS/HCC) (Primary Dx) 09/10/2024 External Device Data STL ABSTRACTION Provider, Abstract 09/06/2024 Orders Only [facility] Oncology [facility] [address] [place] [address] Jone Chery MD 08/20/2024 External Device Data STL ABSTRACTION Provider, Abstract 08/13/2024 Abstract [facility] Oncology [facility] [address] [place] [address] Jone Chery MD from Last 3 Months [...] on file Legal Sex Male 9:14 AM 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 ASSISTANT Gender Identity Not on file Sexual Orientation Not on file Last Filed Vital Signs Vital Sign Reading Time Taken Comments Blood Pressure 113/66 09/10/2024 9:11 AM CDT Pulse 72 09/10/2024 9:11 AM CDT Temperature 36.1 C (96.9 F) 09/10/2024 9:11 AM CDT Respiratory Rate 16 09/10/2024 9:11 AM CDT Oxygen Saturation 97% 09/10/2024 9:11 AM CDT Inhaled Oxygen Concentration - - Weight 81.3 kg (179 lb 3.2 oz) 09/10/2024 9:11 A M CDT Height 170.2 cm (5' 7) 11/12/2021 8:45 AM CDT Body Mass Index 28.07 11/12/2021 8:45 AM CDT Plan of Treatment Upcoming Encounters Date Type Department Care Team (Late st Contact Info) Description 12/17/2024 11:15 AM CDT Office Visit [facility] Oncology and Hematology - [place] [address] [facility] [address] [place] [address] Jone Chery MD [address] [facility] [address] [place] [address] Health Maintenance Due Date Last Done Comments DTAP/TDAP/TD VACCINES (1 - Tdap) 12/28/1967 COLORECTAL SCREENING 1993 Colorectal Cancer Screening 1993 FIT-DNA Q 3 years 1993 FIT/FOBT Q 1 year 1993 Flex Sig/CT Colonography Q 5 years 1993 PNEUMOCOCCAL VACCINE 50+ YEARS (1 of 1 - PCV) 12/27/18 99 ZOSTER VACCINE (1 of 2) 1998 RSV VACCINE (60+ or ) (1 - 1-dose 75+ series) 12/28/2023 INFLUENZA VACCINE (#1) 2024 Procedures Procedure Name Priority Date/Time Associated Diagnosis Comments COMPREHENSIVE METABOLIC PANEL Routine 11/05/2024 3:54 PM CDT COMPREHENSIVE METABOLIC PANEL Routine 09/03/2024 12:47 PM CDT COMPREHENSIVE METABOLIC PANEL Routine 09/03/2024 12:46 PM CDT CBC WITH DIFFERENTIAL Routine 09/03/2024 12:40 PM CDT from Last 3 Months Results * COMPREHENSIVE METABOLIC PANEL (11/05/2024 3:54 PM CDT) Only the most recent of3 resultswithin the time period is included. Blood us Jone Chery MD CHEMISTRY ORDERABLES Final Resu lt * CBC WITH DIFFERENTIAL (09/03/2024 12:40 PM CDT) Blood us Jone Chery MD HEMATOLOGY ORDERABLES Final Res ult from Last 3 Months Insurance [facility] BENEFIT PLANS RX [facility] [employer] Commercial Care Teams And Taxi Instructor Bus Trolley Relationship Specialty Start Date End Date Wallace De La Garza MD [address] [address] PCP - General Internal Medicine 06/04/21
--- OUTSIDE RECORDS SUMMARY | 2024-11-13 06:56 | XMS_ITS | Encounter Summary ---
Author Organization [facility] Address [address] [place] [address] Care Team Providers Care Textile Machinery Sales Representative Name Role Phone Wallace De La Garza MD Primary Care Provider [phone] Encounter Details Date Type Department Care Team (Late st Contact Info) Description 11/12/2024 External Device Data STL ABSTRACTION Provider, Abstract NO ADDRESS ON FILE Social History Tobacco Use Types Packs/Day Years Used Date Smoking Tobacco: Never Smokeless Tobacco: Never Alcohol Use Standard Drinks/Week Comments Yes 0 (1 standard drink = 0.6 oz pur e alcohol) occasional Sex and Gender Information Value Date Recorded Sex Assigned at Not on file 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 Gender Identity Not on file Sexual Orientation Not on file documented as of this encounter Plan of Treatment Upcoming Encounters Date Type Department Care Team (Late st Contact Info) Description 12/17/2024 11:15 AM CDT Office Visit [facility] Oncology and Hematology - Jr [address] [place] [address] Jone Chery MD [address] [facility] [address] [place] [address] documented as of this encounter Visit Diagnoses Not on filedocumented in this encounter Care Teams Textile Machinery Sales Representative Relationship Specialty Start Date End Date Wallace De La Garza MD [address] [place] [address] PCP - General Internal Medicine 06/04/21 documented as of this encounter
--- OUTSIDE RECORDS SUMMARY | 2024-11-13 06:56 | XMS_ITS | Encounter Summary ---
Author Organization [facility] Address [address] [place] [address] Care Team Providers Care Mechanical Equipment Sales Engineer Name Role Phone Wallace De La Garza MD Primary Care Provider [phone] Encounter Details Date Type Department Care Team (Late st Contact Info) Description 10/27/2023 Specialty Pharmacy [facility] [place] [address] [place] [address] Yaritza Lucas PHARMACIST Social History Tobacco Use Types Packs/Day Years Used Date Smoking Tobacco: Never Smokeless Tobacco: Never Alcohol Use Standard Drinks/Week Comments Yes 0 (1 standard drink = 0.6 oz pur e alcohol) occasional Sex and Gender Information Value Date Recorded Sex Assigned at Not on file Legal Sex Male 9:14 AM CTRS Gender Identity Not on file Sexual Orientation Not on file documented as of this encounter Plan of Treatment Upcoming Encounters Date Type Department Care Team (Late st Contact Info) Description 12/17/2024 11:15 AM CDT Office Visit [facility] Oncology and Hematology - Jr [address] [place] [address] Jone Chery MD [address] [facility] [address] [place] [address] documented as of this encounter Visit Diagnoses Not on filedocumented in this encounter Care Teams Mechanical Equipment Sales Engineer Relationship Specialty Start Date End Date Wallace De La Garza MD [address] [place] [address] PCP - General Internal Medicine 06/04/21 documented as of this encounter
[2024-11-13 07:45] LABS: Alanine Aminotransferase 26 U/L (6-50); Albumin Level 4.3 g/dL (3.5-5.1); Alkaline Phosphatase 88 U/L (38-126); Anion Gap 8 mmol/L (4-12); Aspartate Amino Transferase 46 U/L (17-59); Bilirubin,Total 0.8 mg/dL (0.2-1.3); Blood Urea Nitrogen 26 mg/dL (9-20); Calcium 9.8 mg/dL (8.4-10.2); Carbon Dioxide 27 mmol/L (22-30); Chloride 101 mmol/L (98-107); Cholesterol 193 mg/dL (0-200); Estimated Glomerular Filt Rate 58; Glucose 188 mg/dL (65-110); HDL Direct 53 mg/dL; Potassium 3.9 mmol/L (3.4-5.0); Sodium 136 mmol/L (137-145); Total Protein 6.8 g/dL (6.3-8.2); Triglycerides 91 mg/dL (<150)
[2024-11-13 08:02] LABS: Hemoglobin A1C 7.2 % (<5.7)
[2024-11-13 08:48] LABS: MALB Creatinine Ratio 43.4 mg/g (0-30)
== END 2024-11-13 06:55 | disposition home or self-care (01) ==
LOC: ANHLAB 06:55
PROVIDERS: PCP Emergency Medicine; Visit Provider Emergency Medicine
DX: E55.9 Vitamin D deficiency, unspecified (principal); E78.5 Hyperlipidemia, unspecified; E11.9 Type 2 diabetes mellitus without complications
CPT/HCPCS: 36415; 80053; 80061; 82043; 82306; 83036